=== PATIENT | female | born 1940 | race Caucasian/White ===

== ENCOUNTER 2019-11-25 03:17 | Emergency (ER) | payer OTHER ==
--- OUTSIDE RECORDS SUMMARY | 2019-11-25 03:19 | XMS REPORT ---
:1940 [facility] Address [address] [place] [address] Care Team Providers Name Role Phone DR ZELDA LEONARD Unavailable Unavailable Problems This patient has no known problems. Allergies, Adverse Reactions, Alerts This patient has no known allergies or adverse reactions. Medications This patient has no known medications. Encounters Start End Encounter Admission Attending Care Care Encounter Date/Time Date/Time Type Type Clinicians Facility Department ID 2019-07-02 2019-07-16 Inpatient E [facility] [id number] 18:56:00 15:00:00 ZELDA Results Test Description Test Time Test Comments Text Results Atomic Results Result Comments B12 VITAMIN 2019-07-02 23:33:00 Test Item Value Reference Range Comments VIT B12 (test code=A60) 267.0 pg/mL 180.0-914.0 [id number] 23:15:00 Test Item Value Reference Range Comments Hb A1C % (test code=HBA) 5.7 % 4.2-6.3 LIPID [id number] 19:30:00 Test Item Value Reference Range Comments CHOLESTROL (test code=44A) 213 mg/dL 140-200 TRIGLYCERI (test code=42B) 99 mg/dL <=149 HDL (test code=83D) 82.0 mg/dL 40.0-60.0 LDL (test code=34B) 121 mg/dL <=99 CHL/HDL (test code=CHR) 2.6 0.0-3.4 [id number] 19:30:00 Test Item Value Reference Range Comments FOLATE (test code=A75) 7.4 ng/mL 3.1-17.5 THYROID PANEL/SCREEN (TSH)2019-07-02 19:29:00 Test Item Value Reference Range Comments TSH (test code=A57) 1.870 uIU/mL 0.358-3.740 [id number] 19:26:00 Test Item Value Reference Range Comments PREALBUMIN (test code=08E) 22 mg/dL 18-38 [id number] 19:14:00 Test Item Value Reference Range Comments MAGNESIUM (test code=48A) 2.2 mg/dL 1.8-2.4 URINALYSIS WITH [id number] 18:27:00 Test Item Value Reference Range Comments COLOR (test code=COLU) YELLOW YELLOW CLARITY (test code=CLA) HAZY CLEAR GLUCOSE UR (test code=UA GLUCOSE) NEGATIVE NEGATIVE BILI UR (test code=BILE) NEGATIVE NEGATIVE KETONES UR (test code=BRENDAN) NEGATIVE NEGATIVE SP GRAVITY (test code=SPGR) 1.011 1.005-1.030 PH UR (test code=PH) 6.5 4.5-8.0 PROTEIN UR (test code=PU) NEGATIVE NEGATIVE UROBIL UR (test code=UROQ) 0.2 EU/dL 0.2-1.0 NITRITE UR (test code=NITRITE) POSITIVE NEGATIVE BLOOD UR (test code=UA BLOOD) NEGATIVE NEGATIVE LEUK ES UR (test code=LEUK) 2+ NEGATIVE WBC UR (test code=UWBC) 8 /HPF 0-5 RBC UR (test code=URBC) 0 /HPF 0-2 EPITH UR (test code=UEPC) FEW /LPF FEW BACTERIA UR (test code=UBACT) MODERATE /HPF NONE CAST UR (test code=CAST) /LPF NONE CRYSTAL UR (test code=CRYU) / LPF NONE MUCUS UR (test code=MUC) / HPF NONE AMORPH UR (test code=MIGUELINA) / HPF NONE TRICH UR (test code=UTRICH) /HPF NONE YEAST UR (test code=UY) /HPF NONE SPERM UR (test code=USPERM) /HPF NONE DRUGS OF [id number] 18:25:00 Test Item Value Reference Range Comments DRUG SCRN (test code=HDOA) URINE DRUG SCREEN This is an unconfirmed screening result and should not be used for non-medical purposes CANNABINOD (test code=88C) Negative NEGATIVE AMPHETAMINE (test code=84A) Negative NEGATIVE BENZODIAZP (test code=86A) Negative NEGATIVE BARBITURAT (test code=85A) Negative NEGATIVE OPIATES (test code=92B) Negative NEGATIVE COCAINE (test code=87A) Negative NEGATIVE PHENCYCLID (test code=66A) Negative NEGATIVE METHADONE (test code=64A) Negative NEGATIVE DOAH (test code=DOAH.) URINE DRUG SCREEN Cut-off values are as follows: Cannabinoids 50 ng/mL Cocaine 300 ng/mL Amphetamines 1000 ng/mL Phencyclidine 25 ng/mL Benzodiazepines 200 ng.mL Methadone 300 ng/mL Barbiturates 200 ng/mL Opiates 2000 ng/mL [id number] 17:35:00 Test Item Value Reference Range Comments ACETAMINPH (test code=94M) <2.0 ug/mL 10.0-30.0 [id number] 17:34:00 Test Item Value Reference Range Comments SALICYLATE (test code=94B) <1.7 mg/dL 2.8-20.0 COMPREHENSIVE METABOLIC [id number] 17:21:00 Test Item Value Reference Range Comments GLUCOSE (test code=06D) 96 mg/dL 75-100 SODIUM (test code=01A) 142 mmol/L 136-145 POTASSIUM (test code=01B) 4.0 mmol/L 3.6-5.1 CHLORIDE (test code=04A) 111 mmol/L 98-107 CO2 (test code=02A) 26 mmol/L 22-32 ANION GAP (test code=ANG) 9.0 mmol/L BUN (test code=05D) 15 mg/dL 7-18 CREATININE (test code=03E) 1.5 mg/dL 0.4-1.1 BUN/CREA (test code=BCR) 10 12-20 CALCIUM (test code=09D) 9.3 mg/dL 8.3-9.5 BILI TOTAL (test code=11A) 1.0 mg/dL 0.2-1.0 PROTEIN (test code=07D) 7.3 g/dL 6.4-8.2 ALBUMIN (test code=08D) 4.1 g/dL 3.5-4.8 GLOBULIN (test code=GLB) 3.2 g/dL 1.5-3.8 ALB/GLOB (test code=AGRR) 1.3 1.0-2.6 ALK PHOS (test code=35A) 75 IU/L 42-121 AST (test code=30A) 15 IU/L <=42 ALT (test code=31A) 16 IU/L <=78 ALCOHOL BLOOD (ETOH)2019-07-02 17:20:00 Test Item Value Reference Range Comments ETOH (test code=HALC) ETHANOL The result is to be used only for medical purposes ALCOHOL (test code=56A) <10 mg/dL <=10 PRO TIME AND [id number] 17:13:00 Test Item Value Reference Range Comments PT (test code=TT) 11.0 s 9.8-13.6 INR (test code=INR) 1.0 INRH (test code=INRH) SUGGESTED THERAPEUTIC RANGE FOR INR: 2.5 - 3.5 For Patients with Prosthetic Valves or Patients with recurrent Thromboembolic Events 2.0 - 3.0 For Most Other Applications PTT (test code=PTT) 36.3 s 20.2-38.0 PTTH (test code=PTTH) To monitor the effectiveness of heparin, we offer the Anti-Xa (Heparin Assay). It can be used for either unfractionated or LMW Heparin. Order Code is ANTI-XA XR CHEST 1 VIEW [id number] 17:10:07EXAM: XR CHEST 1 VIEW PORTABLE.LOCATION: D4.HISTORY: [id number]: Psychiatric treatment changed.COMPARISON: None.TECHNIQUE: Single AP view of the chest was obtained. FINDINGS:Patient is rotated to the left. The heart is normal in size. Calcifications areseen at the aortic arch. The lungs are clear. No acute osseous abnormality isidentified.IMPRESSION:No acute cardiopulmonary abnormality.CARDIAC [id number] 17:09:00 Test Item Value Reference Range Comments TROPONIN I (test code=A84) <0.015 ng/mL 0.000-0.045 AMMONIA [id number] 17:05:00 Test Item Value Reference Range Comments AMMONIA (test code=54A) <10 umol/L 11 CBC (INCLUDES AUTOMATED DIFFERENTIAL)2019-07-02 17:02:00 Test Item Value Reference Range Comments WBC (test code=WBC) 6.7 10\S\3/uL 4.5-11.0 RBC (test code=RBC) 4.13 10\S\6/uL 3.80-5.80 HGB (test code=HBG) 12.4 g/dL 12.0-15.5 HCT (test code=HCT) 38.5 % 35.0-44.0 MCV (test code=MCV) 93.2 fL 81.0-99.0 MCH (test code=MCH) 30.0 pg 27.0-31.0 MCHC (test code=MCHC) 32.2 g/dL 32.0-36.0 RDW (test code=RDW) 13.1 % 11.5-14.5 PLT (test code=PLT) 183 10\S\3/uL 130-400 MPV (test code=MPV) 11.9 fL 9.4-12.4 NEUTROP # (test code=NE#) 4.7 10\S\3/uL 1.6-8.0 LYMPH # (test code=LY#) 1.4 10\S\3/uL 1.1-3.5 MONOCYTE # (test code=MO#) 0.5 10\S\3/uL 0.0-1.1 EOSINOPH # (test code=EO#) 0.1 10\S\3/uL 0.0-0.7 BASOPHIL # (test code=BA#) 0.0 10\S\3/uL 0.0-0.3 IG # (test code=IG#) 0.01 10\S\3/uL 0.00-0.06 NRBC # (test code=NRBC#) 0.00 10\S\3/uL 0.00-0.01 NEUTROPH % (test code=NE%) 69.5 % 35.0-73.0 LYMPH % (test code=LY%) 21.0 % 20.0-55.0 MONO % (test code=MO%) 7.9 % 2.5-10.0 EOSINOPH % (test code=EO%) 1.2 % 0.0-5.0 BASOPHIL % (test code=BA%) 0.3 % 0.0-2.0 IG % (test code=IG%) 0.1 % 0.0-0.8 NRBC% (test code=NRBC%) 0.0 % 0.0-0.2 MANDIFF (test code=MDIFF) NO NO RBC MORPH (test code=RBCMOR) NORMAL
--- NOTE | 2019-11-25 04:35 | ER ---
Nurse's Notes [facility] Name: Corinne Ordaz Age: 79 yrs Sex: Female : 1940 Arrival Date: 11/25/2019 Time: 03:18 Bed 8 Private MD: Diagnosis: Contusion of unspecified part of head;Concussion without loss of consciousness Presentation: 11/24 03:15 Chief complaint: EMS states: patient woke up from sleeping found herself on the floor rr5 (side of her bed). having a bump on the back of the head . no blood thinner, no LOC. 03:15 Coronavirus screen: The patient has NOT traveled to a country currently being monitored rr5 by the [facility] within the last 14 days. Proceed with normal triage procedures. Ebola Screen: Patient negative for fever greater than or equal to 101.5 degrees Fahrenheit, and additional compatible Ebola Virus Disease symptoms Patient denies exposure to infectious person. Patient denies travel to an Ebola-affected area in the 21 days before illness onset. Initial Sepsis Screen: Does the patient meet any 2 criteria? No. Patient's initial sepsis screen is negative. Does the patient have a suspected source of infection? No. Patient's initial sepsis screen is negative. Risk Assessment: Do you want to hurt yourself or someone else? Patient reports no desire to harm self or others. Note CBG 93 mg/dl, VS BP 114/58 mmHg Hr 70 bpm, O2 sat 98%. Onset of symptoms was November 25, 2019. 03:15 Method Of Arrival: EMS: [facility] rr5 03:15 Acuity: MELE 3 rr5 03:15 Transition of care: patient was received from another setting of care (long-term care rr5 facility), [facility]aut[facility]. 03:15 Care prior to arrival: None. Mechanism of Injury: Fall out of bed. Trauma event rr5 details: Injury occurred in the [facility], Injury occurred: madiha bautista Injury occurred: November 25, 2019. Trauma Activation: Not Applicable Physician: ED Physician; Name: ; Notified At: ; Arrived At: Physician: General Surgeon; Name: ; Notified At: ; Arrived At: Physician: Radiology; Name: ; Notified At: ; Arrived At: Physician: Respiratory; Name: ; Notified At: ; Arrived At: Physician: Lab; Name: ; Notified At: ; Arrived At: Historical: - Allergies: 03:28 Penicillins; rr5 - Home Meds: 03:28 amlodipine 10 mg oral tab 1 tab once daily [Active]; aripiprazole oral oral [Active]; rr5 Bupropion Oral [Active]; carvedilol oral oral [Active]; donepezil oral oral [Active]; escitalopram oxalate oral oral [Active]; Microzide oral oral [Active]; methscopolamine oral oral [Active]; Mirtazapine Oral [Active]; Omeprazole Oral [Active]; Thera-M oral oral [Active]; hyoscyamine sulfate 0.125 mg SL subl [Active]; - PMHx: 03:28 colon cancer; Hypertension; Depression; rr5 - Immunization history:: Adult Immunizations up to date. - Social history:: Smoking status: unknown. Screenin:28 Abuse screen: Denies threats or abuse. Denies injuries from another. Nutritional rr5 screening: No deficits noted. Tuberculosis screening: No symptoms or risk factors identified. Fall Risk Fall in past 12 months (25 points). Gait- Weak (10 pts.). Total Rincon Fall Scale indicates Low Risk Score (25-44 pts). Fall prevention measures have been instituted. Side Rails Up X 2 Placed close to Nursing Station Frequent Obs/Assesments occuring Family Present and informed to notify staff if they need to leave bedside As available Patient and Family Educated on Fall Prevention Program and strategies. Primary Survey: 03:15 NO uncontrolled hemorrhage observed. A: The patient is alert. Airway: patent, No rr5 supplemental oxygen in use on arrival. Oral cavity: clear, gag reflex present, Trachea midline. 03:15 Breathing/Chest: Respiratory pattern: regular, Respiratory effort: spontaneous, rr5 unlabored, Breath sounds: clear, bilaterally. Chest inspection: symmetrical rise and fall of the chest. Circulation: Heart tones present. Pulses: palpable right radial artery and left radial artery. Skin color: pink, Skin temperature: warm, dry. Disability Alert. Exposure/Environment: All clothing and personal items were removed. Forensic evidence collection is not deemed to be indicated at this time. Items placed in patient belonging bag. There is no evidence of uncontrolled external bleeding. No obvious injuries are noted at this time. A warming method has been applied: A warm blanket has been provided to the patient. 04:15 Reassessment Airway Airway Patent Breathing/Chest Respiratory pattern Regular rr5 Respiratory effort Spontaneous Unlabored Breath sounds Clear Chest inspection Symmetrical Circulation Heart tones Present Pulses Palpable Color [place] Temperature Warm Dry Disability Alert. Secondary Survey: 03:15 HEENT: Head Other swelling on the occipital area, no laceration noted. Face No rr5 injury/deformity Eyes: No injury or deformity noted. Ears: clear bilaterally. Nose: clear to bilateral nares. Throat: is clear with gag reflex present. 03:15 Gastrointestinal: No deficits noted. : No signs and/or symptoms were reported rr5 regarding the genitourinary system. Musculoskeletal: Capillary refill < 3 seconds. Assessment: 03:15 General: Appears in no apparent distress. comfortable, Behavior is calm, cooperative, rr5 appropriate for age. 03:15 Pain: Denies pain. Neuro: Level of Consciousness is awake, alert, obeys commands, rr5 Oriented to person, place, time, situation, Appropriate for age Moves all extremities. Full function Speech is normal, Facial symmetry appears normal, Pupils are PERRLA, Denies dizziness, headache LOC. Cardiovascular: Capillary refill < 3 seconds Patient's skin is warm and dry. Respiratory: Airway is patent Respiratory effort is even, unlabored, Respiratory pattern is regular, symmetrical. GI: Patient currently denies nausea, vomiting. : No signs and/or symptoms were reported regarding the genitourinary system. EENT: No signs and/or symptoms were reported regarding the EENT system. Derm: Skin is intact, is healthy with good turgor, Skin temperature is warm. Musculoskeletal: Swelling present in left side of the back of head. 04:40 Reassessment: Patient appears in no apparent distress at this time. Patient is alert, rr5 oriented x 3, equal unlabored respirations, skin warm/dry/pink. patient is discharge [facility] staff amara informed she said she will call patients family member to arrange transportation. she will call me back for the update. 05:30 Reassessment: Patient appears in no apparent distress at this time. Patient and/or rr5 family updated on plan of care and expected duration. Pain level reassessed. Patient is alert, oriented x 3, equal unlabored respirations, skin warm/dry/pink. went to restroom via wheelchair. awaiting for restroom. 06:10 Reassessment: Patient appears in no apparent distress at this time. madiha lily on the rr5 way for the transport. 06:19 Reassessment: Patient appears in no apparent distress at this time. discharge rr5 instruction given without complaints made. assisted by madiha bautista staff via wheelchair. Vital Signs: 03:15 BP 148 / 62; Pulse 71; Resp 17; Temp 98; Pulse Ox 100% ; Weight 68.04 kg; Height 5 ft. rr5 9 in. (175.26 cm); Pain 0/10; 04:20 BP 141 / 75; Pulse 75; Resp 16; Pulse Ox 99% on R/A; rr5 05:30 BP 145 / 70; Pulse 70; Resp 19; Temp 98.2; Pulse Ox 97% ; rr5 06:12 BP 136 / 59; Pulse 72; Resp 15; Temp 98.1; Pulse Ox 99% on R/A; rr5 03:15 Body Mass Index 22.15 (68.04 kg, 175.26 cm) rr5 [place] Coma Score: 03:15 Eye Response: spontaneous(4). Verbal Response: oriented(5). Motor Response: obeys rr5 commands(6). Total: 15. Trauma Score (Adult): 03:15 Eye Response: spontaneous(1); Verbal Response: oriented(1); Motor Response: obeys rr5 commands(2); Systolic BP: > 89 mm Hg(4); Respiratory Rate: 10 to 29 per min(4); Isidra Score: 15; Trauma Score: 12 06:12 Eye Response: spontaneous(1); Verbal Response: oriented(1); Motor Response: obeys rr5 commands(2); Systolic BP: > 89 mm Hg(4); Respiratory Rate: 10 to 29 per min(4); Isidra Score: 15; Trauma Score: 12 ED Course: 03:15 Patient maintains SpO2 saturation greater than 95% on room air. rr5 03:18 Patient arrived in ED. rr5 03:22 Jose Chow MD is Attending Physician. tw4 03:23 Triage completed. rr5 03:23 Arm band placed on. rr5 03:29 Patient has correct armband on for positive identification. Placed in gown. Call light rr5 in reach. 03:43 Stoner, Adrien, RN is Primary Nurse. rr5 03:55 CT Head C Spine In Process Unspecified. EDMS 04:46 No provider procedures requiring assistance completed. Patient did not have IV access rr5 during this emergency room visit. Administered Medications: No medications were administered Intake: 06:12 voided rr5 Output: 06:12 Other: 2; Total: 0ml. rr5 06:12 voided rr5 Outcome: 04:34 Discharge ordered by . tw4 06:20 Discharged to [facility] rr5 06:20 Condition: stable 06:20 Discharge instructions given to patient, captain room service, Instructed on discharge instructions, follow up and referral plans. Demonstrated understanding of instructions, follow-up care. 06:23 Patient left the ED. mw2 Signatures: Dispatcher [employer] Jose Reynoso MD MD tw4 SamEverardo castro mw2 Adrien Stoner, RN RN rr5
--- NOTE | 2019-11-25 04:35 | EDPHYS ---
Physician Documentation [facility] Name: Corinne Ordaz Age: 79 yrs Sex: Female : 1940 Arrival Date: 11/25/2019 Time: 03:18 Bed 8 Private MD: ED Physician Jose Chow HPI: 11/24 05:36 This 79 yrs old Female presents to ER via EMS with complaints of Fall Injury. tw4 05:36 Details of fall: The patient fell from an upright position, while standing. Onset: The tw4 symptoms/episode began/occurred today. Associated injuries: The patient sustained injury to the head, contusion. Severity of symptoms: At their worst the symptoms were mild, in the emergency department the symptoms are unchanged. The patient has not experienced similar symptoms in the past. Historical: - Allergies: 03:28 Penicillins; rr5 - Home Meds: 03:28 amlodipine 10 mg oral tab 1 tab once daily [Active]; aripiprazole oral oral [Active]; rr5 Bupropion Oral [Active]; carvedilol oral oral [Active]; donepezil oral oral [Active]; escitalopram oxalate oral oral [Active]; Microzide oral oral [Active]; methscopolamine oral oral [Active]; Mirtazapine Oral [Active]; Omeprazole Oral [Active]; Thera-M oral oral [Active]; hyoscyamine sulfate 0.125 mg SL subl [Active]; - PMHx: 03:28 colon cancer; Hypertension; Depression; rr5 - Immunization history:: Adult Immunizations up to date. - Social history:: Smoking status: unknown. ROS: 05:36 Constitutional: Negative for fever, chills, and weight loss, Eyes: Negative for injury, tw4 pain, redness, and discharge, Cardiovascular: Negative for chest pain, palpitations, and edema, Respiratory: Negative for shortness of breath, cough, wheezing, and pleuritic chest pain, Abdomen/GI: Negative for abdominal pain, nausea, vomiting, diarrhea, and constipation, Back: Negative for injury and pain, MS/Extremity: Negative for injury and deformity, Skin: Negative for injury, rash, and discoloration. Exam: 05:36 Constitutional: This is a well developed, well nourished patient who is awake, alert, tw4 and in no acute distress. 05:36 Eyes: Pupils equal round and reactive to light, extra-ocular motions intact. Lids and lashes normal. Conjunctiva and sclera are non-icteric and not injected. Cornea within normal limits. Periorbital areas with no swelling, redness, or edema. ENT: Nares patent. No nasal discharge, no septal abnormalities noted. Tympanic membranes are normal and external auditory canals are clear. Oropharynx with no redness, swelling, or masses, exudates, or evidence of obstruction, uvula midline. Mucous membranes moist. Neck: Trachea midline, no thyromegaly or masses palpated, and no cervical lymphadenopathy. Supple, full range of motion without nuchal rigidity, or vertebral point tenderness. No Meningismus. Chest/axilla: Normal chest wall appearance and motion. Nontender with no deformity. No lesions are appreciated. Cardiovascular: Regular rate and rhythm with a normal S1 and S2. No gallops, murmurs, or rubs. Normal PMI, no JVD. No pulse deficits. Respiratory: Lungs have equal breath sounds bilaterally, clear to auscultation and percussion. No rales, rhonchi or wheezes noted. No increased work of breathing, no retractions or nasal flaring. Abdomen/GI: Soft, non-tender, with normal bowel sounds. No distension or tympany. No guarding or rebound. No evidence of tenderness throughout. MS/ Extremity: Pulses equal, no cyanosis. Neurovascular intact. Full, normal range of motion. Neuro: Awake and alert, GCS 15, oriented to person, place, time, and situation. Cranial nerves II-XII grossly intact. Motor strength 5/5 in all extremities. Sensory grossly intact. Cerebellar exam normal. Normal gait. 05:36 Constitutional: The patient appears in no acute distress, alert, awake, comfortable. 05:36 Head/face: Noted is contusion, that is superficial, of the right occipital area. Vital Signs: 03:15 BP 148 / 62; Pulse 71; Resp 17; Temp 98; Pulse Ox 100% ; Weight 68.04 kg; Height 5 ft. rr5 9 in. (175.26 cm); Pain 0/10; 04:20 BP 141 / 75; Pulse 75; Resp 16; Pulse Ox 99% on R/A; rr5 05:30 BP 145 / 70; Pulse 70; Resp 19; Temp 98.2; Pulse Ox 97% ; rr5 06:12 BP 136 / 59; Pulse 72; Resp 15; Temp 98.1; Pulse Ox 99% on R/A; rr5 03:15 Body Mass Index 22.15 (68.04 kg, 175.26 cm) rr5 Isidra Coma Score: 03:15 Eye Response: spontaneous(4). Verbal Response: oriented(5). Motor Response: obeys rr5 commands(6). Total: 15. Trauma Score (Adult): 03:15 Eye Response: spontaneous(1); Verbal Response: oriented(1); Motor Response: obeys rr5 commands(2); Systolic BP: > 89 mm Hg(4); Respiratory Rate: 10 to 29 per min(4); [place] Score: 15; Trauma Score: 12 06:12 Eye Response: spontaneous(1); Verbal Response: oriented(1); Motor Response: obeys rr5 commands(2); Systolic BP: > 89 mm Hg(4); Respiratory Rate: 10 to 29 per min(4); Isidra Score: 15; Trauma Score: 12 MDM: 03:22 Patient medically screened. tw4 05:36 Differential diagnosis: closed head injury, contusion, fracture, laceration. Data tw4 reviewed: vital signs, nurses notes. Data reviewed: radiologic studies, CT scan. Data interpreted: Pulse oximetry:. Counseling: I had a detailed discussion with the patient and/or guardian regarding: the historical points, exam findings, and any diagnostic results supporting the discharge/admit diagnosis, radiology results. Special discussion: Based on the patient's history, exam and DX evaluation, there is no indication for emergent intervention or inpatient [place]. It is understood by the patient/guardian that if the SXs persist or worsen they need to return immediately for re-evaluation. I discussed with the patient/guardian in detail that at this point there is no indication for admission to the hospital. It is understood, however, that if the symptoms persist or worsen the patient needs to return immediately for re-evaluation. 11/24 03:25 Order name: CT Head C Spine tw4 Administered Medications: No medications were administered Disposition: 11/25/19 04:34 Discharged to Home. Impression: Contusion of unspecified part of head, Concussion without loss of consciousness. - Condition is Stable. - Discharge Instructions: Contusion, Head Injury, Adult, [id number]. - Medication Reconciliation Form, Thank You Letter, Antibiotic Education, Prescription Opioid Use form. - Follow up: Private Physician; When: Upon discharge from the Emergency Department; Reason: Recheck today's complaints, Continuance of care, Re-evaluation by your physician. - Problem is new. - Symptoms have improved. Signatures: Dispatcher [employer] Jose Reynoso MD MD tw4 Everardo Vargas mw2 Adrien Stoner RN RN rr5 Corrections: (The following items were deleted from the chart) 06:23 04:34 11/25/2019 04:34 Discharged to Home. Impression: Contusion of unspecified part of mw2 head; Concussion without loss of consciousness. Condition is Stable. Forms are Medication Reconciliation Form, Thank You Letter, Antibiotic Education, Prescription Opioid Use. Follow up: Private Physician; When: Upon discharge from the Emergency Department; Reason: Recheck today's complaints, Continuance of care, Re-evaluation by your physician. Problem is new. Symptoms have improved. tw4
[2019-11-25 06:36] VITALS: BP 136/59; TEMP 98.1; O2SAT 99
--- NOTE | 2019-11-25 11:05 | RAD REPORT ---
EXAM DESCRIPTION: CT - CTHCSPWOC - 11/25/2019 6:22 am CLINICAL HISTORY: PAIN COMPARISON: 10/07/2015 TECHNIQUE: Axial CT of the head obtained from the skull apex to the skull base without contrast. Axi al CT images of the cervical spine obtained from the skull base through the thoracic inlet. Sagittal and coronal reformatted images available. FINDINGS: CT head: No acute intracranial hemorrhage identified. No mass, mass effect, shift of the midline, abnormal ext ra-axial fluid collection or CT evidence of acute ischemic change identified. Mild enlargement of leidy tricular system and sulcal spaces compatible with cerebral atrophy. Confluent areas of hypodensity throughout the supratentorial white matter are nonspecific and may represent sequela of chronic small vessel ischemic change. The visualized paranasal sinuses and the mastoids are clear. Intracranial atherosclerosis. Prior left-sided craniotomy. Visualized orbits and globes are unremarkable. Cervical CT: Straightening of the cervical lordosis may be secondary to patient positioning. The atlantoaxial, a tlantodental, and occipitoatlantal intervals are preserved. No fracture identified. Vertebral body height preserved. Prevertebral soft tissues are unremarkable. Mild multilevel loss of intervertebral disc height with endplate spondylosis, facet arthropathy, and uncovertebral spurring. Spurring of the atlantodental articulation. Visualized skull base is intact. No fracture of the visualized facial bones. Visualized mastoid air c ells and paranasal sinuses are well aerated. Visualized thyroid is unremarkable. No cervical lymphadenopathy. No pneumothorax in the visualized lung apices. IMPRESSION: 1. No acute intracranial abnormality. 2. No acute fracture or subluxation of the cervical spine. 3. Multilevel degenerative change of the cervical spine. This exam was performed according to our departmental dose-optimization program, which includes autom ated exposure control, adjustment of the mA and/or kV according to patient size and/or use of iterati ve reconstruction technique. Electronically signed by: Reagan Giraldo 11/25/2019 4:11 AM CDT Due to temporary technical issues with the PACS/Fluency reporting system, reports are being signed by the in house radiologist as a courtesy to ensure prompt reporting. The interpreting radiologist is f ully responsible for the content of the report.
== END 2019-11-25 06:23 | disposition home or self-care (01) ==
LOC: ER 03:17
DX: S06.0X0A Concussion without loss of consciousness, initial encounter (principal); S00.93XA Contusion of unspecified part of head, initial encounter; W06.XXXA Fall from bed, initial encounter; Y93.9 Activity, unspecified; Y92.013 Bedroom of single-family (private) house as the place of occurrence of the external cause; Z88.0 Allergy status to penicillin; Z85.038 Personal history of other malignant neoplasm of large intestine; I10 Essential (primary) hypertension
CPT/HCPCS: 70450; 72125; 99284

== ENCOUNTER 2021-07-09 07:57 | Inpatient (IN) | payer OTHER ==
[2021-07-09 08:39] LABS: Absolute Lymphocytes (CBC) 0.9 K/uL (0.7-4.9); Basophils % 0.5 % (0-1.3); Hematocrit 38.4 % (36.0-45.0); Lymphocytes % 11.5 % (15.3-44.8); MPV 9.5 fL (7.6-11.3); RBC Red Blood Cell Count 4.25 M/uL (3.86-4.86)
[2021-07-09 08:55] LABS: Protime INR 0.97
[2021-07-09 08:59] LABS: ALT/SGPT 27 U/L (12-78); AST/SGOT 20 U/L (15-37); Albumin 3.8 g/dL (3.4-5.0); Alkaline Phosphatase 87 U/L (45-117); BUN Blood Urea Nitrogen 28 mg/dL (7-18); Bicarbonate 26 mmol/L (21-32); Bilirubin Direct 0.2 mg/dL (0-0.2); Bilirubin Total 0.6 mg/dL (0.2-1.0); CKMB Creatine Kinase MB 2.6 ng/mL (1.0-3.6); Creatine Phosphokinase 116 U/L (26-192); Glucose Level 111 mg/dL (74-106); Lipase 242 U/L (73-393); Potassium 3.5 mmol/L (3.5-5.1); Protein, Total 7.2 g/dL (6.4-8.2); Sodium Level 142 mmol/L (136-145); Troponin (Emerg Dept Use Only) < 0.02 ng/mL (0.0-0.045)
[2021-07-09] MEDS ORDERED: NA CHLORIDE 0.9% 1,000 ML ONE (09:06)
--- NOTE | 2021-07-09 09:07 | RAD REPORT ---
EXAM DESCRIPTION: CT - Head C Spine Cap Wo Con - 07/09/2021 8:40 am CLINICAL HISTORY: PAIN, fall, head, neck, chest and abdomen pain COMPARISON: Head C Spine Mpr Wo Con dated 11/25/2019 TECHNIQUE: Axial [address] head images were obtained. Axial [address] cervical spine images were obtain ed with sagittal and coronal reconstruction images reviewed. Axial 5 mm images of the chest, abdomen and pelvis were obtained. All CT scans are performed using dose optimization technique as appropriate and may include automated exposure control or mA/KV adjustment according to patient size. FINDINGS: No intracranial hemorrhage, mass or edema. No midline shift or abnormal fluid collection. Mastoid air cells and paranasal sinuses are clear. No acute skull fracture. Left frontoparietal crani otomy defect noted. No acute globe or orbital content abnormality. Dense arterial tree calcifications are present. Mild to moderate severity for age atrophy changes are present. Patient has advanced ch ronic ischemic change in the cerebral white matter. Cervical bodies are normal in height. No significant alignment abnormality seen. Multilevel advanced facet joint degenerative changes are present. No fracture or acute bone finding.Disc space narrowing present throughout the cervical spine.No prevertebral soft tissue thickening or paraspinal mass.Centr al canal detail is inherently limited on CT imaging. CT chest shows no pneumothorax, pulmonary contusion or pleural fluid collection. No mediastinal hem atoma and the aorta and pulmonary arteries are unremarkable. No chest will mass or abnormal axillary finding. No displaced rib fracture or other significant bony finding. CT abdomen and pelvis show no injury to solid abdominal viscera. Gallbladder is absent or tightly con tracted. There do appear to be cholecystectomy clips. No abnormal biliary tree dilatation. No bowel i njury or significant finding. No free air, free fluid or abnormal stranding. No hernia, mass or bulky lymphadenopathy. No urinary bladder abnormality. Degenerative changes are present throughout the spine mild for age. Patient has advanced degenerative disc disease at L2-3 and L5-S1. No proximal femur or pelvis acute fracture. IMPRESSION: No hemorrhage, edema or acute intracranial findings. Patient has atrophy chronic ischemi c change mild to moderate in severity. Cervical spine degenerative changes are present. No acute cervical finding. Soft tissue asymmetry in the pyriform sinuses noted. This is not fully assessed but is doubtful as significant. No significant CT Chest finding. No significant CT Abdomen and Pelvis finding.
[2021-07-09 09:43] LABS: Urine Blood Trace-intact (Negative); Urine Glucose Negative (Negative); Urine Protein Negative (Negative)
[2021-07-09 10:07] LABS: Urine Bacteria LOADED /HPF (<20); Urine Mucus SLIGHT /HPF (NONE SEEN); Urine RBC <5 /HPF (NONE SEEN)
[2021-07-09] MEDS ORDERED: WATER FOR INJ,STERILE 10 ML ONE (10:22)
[2021-07-09] MEDS ORDERED: CEFTRIAXONE 1000 MG/VIAL ONE (10:22)
--- NOTE | 2021-07-09 10:26 | ER ---
Nurse's Notes [facility] Name: Corinne Ordaz Age: 81 yrs Sex: Female : 1940 Arrival Date: 07/09/2021 Time: 08:09 Bed 16 Private MD: Diagnosis: Fall on same level, unspecified;Acute cystitis;Syncope Near Presentation: 07/09 08:10 Chief complaint: EMS states: Pt. arrives from [facility] living due to an jt3 unwitnessed fall. Pt. was found laying in the living room by staff. Pt. is a poor historian due to having dementia. Pt. is alert and oriented to person and place on arrival, but disoriented to time and situation. Pt. endorses back pain. Pt. states she hit her head, but told EMS she did not. No bleeding noted. No deformities noted. VSS on arrival. Care prior to arrival: None. Mechanism of Injury: Fall out of chair. Trauma event details: Injury occurred: [facility]. 08:10 Acuity: MELE 3 jt3 08:10 Method Of Arrival: EMS: [facility] jt3 Triage Assessment: 08:16 General: Appears in no apparent distress. jt3 - Immunization history: Last tetanus immunization: unknown. - Social history:: Patient/guardian denies using alcohol, street drugs, The patient lives with family. - Family history:: not pertinent. Screenin:10 Abuse screen: Denies threats or abuse. Denies injuries from another. Nutritional jt3 screening: No deficits noted. Tuberculosis screening: No symptoms or risk factors identified. Primary Survey: 08:10 NO uncontrolled hemorrhage observed. A: Airway: patent. Breathing/Chest: Respiratory jt3 pattern: regular. Circulation: Skin temperature: warm. Disability Alert. Exposure/Environment: A warming method has been applied: A warm blanket has been provided to the patient. Assessment: 08:10 General: Appears in no apparent distress. Behavior is calm, cooperative, quiet. Pain: jt3 Complains of pain in back Pain does not radiate. Pain currently is 3 out of 10 on a pain scale. Quality of pain is described as throbbing. Neuro: Reports weakness Pt. alert and oriented x2. Hx of dementia. Pt. hesitates to answer questions. No uncontrolled bleeding. Cardiovascular: No deficits noted. Respiratory: No deficits noted. 08:30 Reassessment: Patient transported to radiology department for CAT scan via stretcher. sl2 Neuro:. 09:54 Reassessment: Patient appears in no apparent distress at this time. Patient and/or jt3 family updated on plan of care and expected duration. Pain level reassessed. Pt. was straight catheterized for urine due to patient unable to void on her own at this time. Pt. tolerated procedure okay. . Vital Signs: 08:10 BP 127 / 61; Pulse 67; Resp 17; Temp 98.7; Pulse Ox 100% on R/A; Weight 68.04 kg; jt3 09:54 BP 141 / 63; Pulse 68; Resp 16; Pulse Ox 100% on R/A; jt3 11:20 BP 143 / 57; Pulse 72; Resp 16; Pulse Ox 100% ; jt3 [place] Coma Score: 08:10 Eye Response: spontaneous(4). Verbal Response: confused(4). Motor Response: localizes jt3 pain(5). Total: 13. Trauma Score (Adult): 08:10 Eye Response: spontaneous(1); Verbal Response: oriented(1); Motor Response: obeys jt3 commands(2); Systolic BP: > 89 mm Hg(4); Respiratory Rate: 10 to 29 per min(4); [place] Score: 15; Trauma Score: 12 ED Course: 08:09 Patient arrived in ED. as 08:10 Matthew Reno, RN is Primary Nurse. jt3 08:10 Patient has correct armband on for positive identification. Placed in gown. Bed in low jt3 position. Side rails up X2. 08:10 Patient maintains SpO2 saturation greater than 95% on room air. jt3 08:12 Triage completed. jt3 08:17 Luis Antonio Ramirez MD is Attending Physician. ma2 08:[address] via stretcher. sl2 08:33 Basic Metabolic Panel Sent. jt3 08:39 CT Traumagram (Head C Spine CAP wo con) In Process Unspecified. EDMS 09:43 Straight cath inserted, using sterile technique, Specimen obtained. 15Fr Returned dh3 cloudy urine. Patient tolerated well. 10:28 Adrien Solo MD is Hospitalizing Provider. ma2 12:59 No provider procedures requiring assistance completed. Patient admitted, IV remains in ss place. Administered Medications: 09:16 Drug: NS 0.9% 1000 ml Route: IV; Rate: 125 ml/hr; Site: left antecubital; jt3 10:02 Drug: Rocephin (cefTRIAXone) 1 grams Route: IV; Rate: calculated rate; Site: left jt3 antecubital; 12:59 Not Given (Other Intervention Used): Ativan (LORazepam) 1 mg IVP once ss Intake: 08:10 PO: 0ml; IV: 0ml; Total: 0ml. jt3 Output: 08:10 Urine: 0ml; Total: 0ml. jt3 Outcome: 10:26 Discharge ordered by MD. ma2 10:29 Decision to Hospitalize by Provider. ma2 12:58 Admitted to Med/surg accompanied by nurse, via wheelchair. jt3 12:58 Condition: Report given to ROSALIND Menjivar. 12:59 Instructed on the need for admit. ss 13:01 Patient left the ED. Signatures: Dispatcher [employer] EDMS Ayanna Johnson Shelby, ROSALIND RN Rylee Brambila 3 Luis Antonio Ramirez MD MD ma2 Cori Sanchez RN RN 2 Matthew Reno RN RN jt3 Corrections: (The following items were deleted from the chart) 11:21 08:10 Patient has correct armband on for positive identification. Placed in gown. Bed jt3 in low position. Side rails up X 1. jt3
--- NOTE | 2021-07-09 10:26 | EDPHYS ---
Physician Documentation [facility] Name: Corinne Ordaz Age: 81 yrs Sex: Female : 1940 Arrival Date: 07/09/2021 Time: 08:09 Bed 16 Private MD: ED Physician Luis Antonio Ramirez HPI: 07/09 08:25 This 81 yrs old Female presents to ER via EMS with complaints of Fall Injury. ma2 08:25 Details of fall: The patient fell from an upright position. Onset: The symptoms/episode ma2 began/occurred suddenly, 12 hour(s) ago. Severity of symptoms: At their worst the symptoms were moderate, in the emergency department the symptoms are unchanged. The patient has not experienced similar symptoms in the past. - Immunization history: Last tetanus immunization: unknown. - Social history:: Patient/guardian denies using alcohol, street drugs, The patient lives with family. - Family history:: not pertinent. ROS: 08:25 Constitutional: Negative for fever, chills, and weight loss. ma2 08:25 Back: Positive for neck and upper back pain. 08:25 All other systems are negative. Exam: 08:25 Constitutional: This is a well developed, well nourished patient who is awake, alert, ma2 and in no acute distress. Head/Face: Normocephalic, atraumatic. Eyes: Pupils equal round and reactive to light, extra-ocular motions intact. Lids and lashes normal. Conjunctiva and sclera are non-icteric and not injected. Cornea within normal limits. Periorbital areas with no swelling, redness, or edema. ENT: Nares patent. No nasal discharge, no septal abnormalities noted. Tympanic membranes are normal and external auditory canals are clear. Oropharynx with no redness, swelling, or masses, exudates, or evidence of obstruction, uvula midline. Mucous membranes moist. Neck: Trachea midline, no thyromegaly or masses palpated, and no cervical lymphadenopathy. Supple, full range of motion without nuchal rigidity, or vertebral point tenderness. No Meningismus. Chest/axilla: Normal chest wall appearance and motion. Nontender with no deformity. No lesions are appreciated. Cardiovascular: Regular rate and rhythm with a normal S1 and S2. No gallops, murmurs, or rubs. Normal PMI, no JVD. No pulse deficits. Respiratory: Lungs have equal breath sounds bilaterally, clear to auscultation and percussion. No rales, rhonchi or wheezes noted. No increased work of breathing, no retractions or nasal flaring. Abdomen/GI: Soft, non-tender, with normal bowel sounds. No distension or tympany. No guarding or rebound. No evidence of tenderness throughout. Back: No spinal tenderness. No costovertebral tenderness. Full range of motion. Skin: Warm, dry with normal turgor. Normal color with no rashes, no lesions, and no evidence of cellulitis. MS/ Extremity: Pulses equal, no cyanosis. Neurovascular intact. Full, normal range of motion. Neuro: Awake and alert, GCS 15, oriented to person, place, time, and situation. Cranial nerves II-XII grossly intact. Motor strength 5/5 in all extremities. Sensory grossly intact. Cerebellar exam normal. Normal gait. Vital Signs: 08:10 BP 127 / 61; Pulse 67; Resp 17; Temp 98.7; Pulse Ox 100% on R/A; Weight 68.04 kg; jt3 09:54 BP 141 / 63; Pulse 68; Resp 16; Pulse Ox 100% on R/A; jt3 11:20 BP 143 / 57; Pulse 72; Resp 16; Pulse Ox 100% ; jt3 Isidra Coma Score: 08:10 Eye Response: spontaneous(4). Verbal Response: confused(4). Motor Response: localizes jt3 pain(5). Total: 13. Trauma Score (Adult): 08:10 Eye Response: spontaneous(1); Verbal Response: oriented(1); Motor Response: obeys jt3 commands(2); Systolic BP: > 89 mm Hg(4); Respiratory Rate: 10 to 29 per min(4); Isidra Score: 15; Trauma Score: 12 MDM: 08:[address] [facility] 08:25 Differential diagnosis: closed head injury, contusion, fracture, sprain, strain. [facility] 10:25 Data reviewed: vital signs, nurses notes. Counseling: I had a detailed discussion with [facility] the patient and/or guardian regarding: the historical points, exam findings, and any diagnostic results supporting the discharge/admit diagnosis, the presence of at least one elevated blood pressure reading (>120/80) during this emergency department visit, the need for outpatient follow up. Response to treatment: the patient's symptoms have markedly improved after treatment. 07/09 08:19 Order name: Basic Metabolic Panel wi2 07/09 08:19 Order name: CBC with Diff; Complete Time: 09:41 ma2 07/09 08:19 Order name: CPK; Complete Time: 09:41 ma2 07/09 08:19 Order name: Ckmb; Complete Time: : ma2 07/09 08:19 Order name: Hepatic Function; Complete Time: : ma2 07/09 08:19 Order name: Lipase; Complete Time: : ma2 07/09 08:19 Order name: Magnesium; Complete Time: : ma2 07/09 08:19 Order name: Protime (+inr); Complete Time: : ma2 07/09 08:19 Order name: Ptt, Activated; Complete Time: :41 ma2 07/09 08:19 Order name: Troponin (emerg Dept Use Only); Complete Time: : ma2 07/09 08:19 Order name: Basic Metabolic Panel; Complete Time: 09:41 EDMS 07/09 09:42 Order name: Urine Dipstick-Ancillary; Complete Time: 09:50 EDMS 07/09 09:42 Order name: Urine Microscopic Only dh3 07/09 09:43 Order name: Urine Microscopic Only; Complete Time: 10:26 EDMS 07/09 08:19 Order name: EKG; Complete Time: 08:20 ma2 07/09 08:19 Order name: Cardiac monitoring; Complete Time: 08:33 ma2 07/09 08:19 Order name: EKG - Nurse/Tech; Complete Time: 08:33 ma2 07/09 08:19 Order name: IV Saline Lock; Complete Time: 08:33 ma2 07/09 08:19 Order name: Labs collected and sent; Complete Time: : ma2 07/09 08:19 Order name: NPO; Complete Time: : ma2 07/09 08:19 Order name: O2 Per Protocol; Complete Time: 08:33 ma2 07/09 08:19 Order name: O2 Sat Monitoring; Complete Time: : ma2 07/09 08:19 Order name: Urine Dipstick-Ancillary (obtain specimen); Complete Time: 09:44 ma2 07/09 08:19 Order name: CT Traumagram (Head C Spine CAP wo con); Complete Time: 09:41 ma2 07/09 10:09 Order name: Urine Culture EDMS 07/09 10:45 Order name: SARS-COV-2 RT PCR (Document "Date of Onset" if Symptomatic) ss 07/09 10:45 Order name: SARS-COV-2 RT PCR; Complete Time: 12:39 EDMS Administered Medications: 09:16 Drug: NS 0.9% 1000 ml Route: IV; Rate: 125 ml/hr; Site: left antecubital; jt3 10:02 Drug: Rocephin (cefTRIAXone) 1 grams Route: IV; Rate: calculated rate; Site: left jt3 antecubital; 12:59 Not Given (Other Intervention Used): Ativan (LORazepam) 1 mg IVP once ss Disposition Summary: 07/09/21 10:29 Hospitalization Ordered Hospitalization Status: Observation ma2 Provider: Adrien Solo Location: Telemetry/MedSurg (observation)(07/09/21 10:29) ma2 Condition: Stable(07/09/21 10:29) ma2 Problem: new ma2 Symptoms: are unchanged ma2 Bed/Room Type: Standard [facility] Room Assignment: [facility](07/09/21 12:13) eb Diagnosis - Fall on same level, unspecified(07/09/21 10:29) ma2 - Acute cystitis ma2 - Syncope Near ma2 Forms: - Medication Reconciliation Form ma2 - SBAR form ma2 Signatures: Dispatcher [employer] EDCA Chris Hopson PA PA jmm Alzahri, Mohammad, MD MD ma2 Daly Stovall Jordan, RN RN patriciat3 Stephy Welsh RN ss Corrections: (The following items were deleted from the chart) 10: 10: Home ma2 ma2 10: 10: Stable ma2 ma2 10: 10: Dehydration ma2 ma2 10: 10: Fall on same level, unspecified ma2 ma2 12:13 10:29 ma2 eb
--- NOTE | 2021-07-09 11:24 | P.HP ---
Certification for Inpatient Patient admitted to: Inpatient With expected LOS: >2 Midnights Practitioner: I am a practitioner with admitting privileges, knowledge of patient current condition, hospital course, and medical plan of care. Services: Services provided to patient in accordance with Admission requirements found in Title 42 Section 412.3 of the Code of Federal Regulations Patient History Date of Service: 07/09/21 Reason for admission: ROHAN, UTI, fall History of Present Illness: 81-year-old female, PMH: Hypertension, depression, delusional disorder Patient was brought in by EMS from [facility] living after a fall. Patient with confusion and does not fully remember the events and is currently a poor historian. Information obtained from the ER physician who states patient had a fall and wound was sent to the hospital. In the ER she was found to have an ROHAN and urinalysis concerning for a urinary tract infection. She was noted to have some confusion, unclear if this was from her baseline. Patient states she is not typically confused. She denies any pain, no nausea/vomiting/diarrhea, no fever/chills. However she is unable to fully recall the events of the last 2 days. ER physician advised to admit the patient for treatment for UTI, and further evaluation and treatment of her ROHAN. Patient does not appear septic. She was started on maintenance IV fluids and given a dose of Rocephin in the ER. Allergies No Known Allergies Allergy (Uncoded 10/12/17 22:13) Unknown PENICILLINS Allergy (Uncoded 08/18/15 21:12) Unknown - Past Medical/Surgical History -: Hypertension -: Depression -: Delusional disorder Past Surgical History: Unable to obtain - Family History Family History: Reviewed- Non-Contributory (Unable to obtain) - Social History Smoking Status: Former smoker ("Quit many years ago") Alcohol use: No Review of Systems 10-point ROS is otherwise unremarkable Physical Examination - Physical Exam General: Alert, In no apparent distress, Oriented x1, Confused HEENT: Other (Dry mucous membranes), Sclerae nonicteric Neck: No LAD Respiratory: Clear to auscultation bilaterally, Normal air movement Cardiovascular: No edema, Regular rate/rhythm Gastrointestinal: Soft and benign, Non-distended, No tenderness Integumentary: No rashes, No significant lesion Neurological: Normal speech, Other (Flat affect. Moves all extremities) - Studies Laboratory Data (last 24 hrs) 07/09/21 08:28: PT 11.1, INR 0.97, APTT 35.2 07/09/21 08:28: WBC 7.70, Hgb 12.5, Hct 38.4, Plt Count 203 07/09/21 08:28: Sodium 142, Potassium 3.5, BUN 28 H, Creatinine 1.99 H, Glucose 111 H, Magnesium 2.0, Total Bilirubin 0.6, AST 20, ALT 27, Alkaline Phosphatase 87, Lipase 242 Assessment and Plan - Advance Directives Does patient have a Living Will: No Does patient have a Durable POA for Healthcare: No Physician Review Additional Text: Problem list Recent fall, unknown etiology Acute cystitis, without sepsis ROHAN Hypertension Depression Delusional disorder Continue IV fluids, continue Rocephin UA grossly positive for UTI, follow-up culture Suspect UTI as well as the patient's fall and her current confusion. Also unclear if patient's baseline mentation Monitor on telemetry Physical therapy consulted Bedside swallow screen by nursing to be done, then can advance diet as tolerated ROHAN likely secondary to dehydration, patient believes she has not been eating/drinking very much lately Follow-up blood work in a.m. Does not appear septic Obtain home medications and restart as appropriate VTE: lovenox Code: full -patient at times stated DNR, and wanting CPR. She seems confused and inappropriate to answers. Paperwork does not show any advanced directives. Therefore she will be a full code Dispo: Anticipate discharge back to assisted living in 2-3 days Time Spent Managing Pts Care (In Minutes): 60
[2021-07-09] MEDS ORDERED: ONDANSETRON 4 MG/2 ML VIAL IV PRN (13:05)
[2021-07-09] MEDS ORDERED: ACETAMINOPHEN 500 MG TAB PO PRN (13:05)
[2021-07-09] MEDS: NA CHLORIDE 0.9% 1,000 ML IV SCH ×2 (13:05→15:38)
[2021-07-09] MEDS ORDERED: KCL 20 MEQ/100 mL IVPB 20 MEQ/100 ML BAG IV SCH (15:00)
[2021-07-09 16:06] VITALS: BMI 22.1
[2021-07-10] MEDS: NA CHLORIDE 0.9% 1,000 ML IV SCH ×2 (02:25→12:08)
--- NOTE | 2021-07-10 06:05 | P.PN ---
Date of Service: 07/10/21 Subjective: mentation improving, more alert/oriented. talking with friend in room AAO to self only. Friend in room states this is not the patient's baseline, but improved compared to yesterday Patient denies any pain, no dysuria, no chills, no shortness of breath, no chest pain She states she is unsure if she has any new symptoms, but currently feeling okay ROS: 10 point ROS as noted above, otherwise negative Physical exam GEN: Alert, oriented to self only, NAD HEENT: Normal conjunctiva, sclera anicteric CV: Regular rate and rhythm, no edema Pulm: Nonlabored respiration on room air ABD: Soft, nontender, nondistended Neuro: Normal speech, normal affect, moves all extremities Problem list Recent fall, unknown etiology Acute metabolic encephalopathy secondary to UtI Acute cystitis, without sepsis ROHAN Hypertension Depression Delusional disorder Continue IV fluids, continue Rocephin UA grossly positive for UTI, follow-up culture Suspect UTI as well as the patient's fall and her current confusion. Patient's mentation seems to be improving, but still remains quite confused. Possible component of delirium as well Monitor on telemetry Physical therapy consulted Tolerating diet ROHAN improved, secondary to dehydration. Continue IV fluids Obtain home medications and restart as appropriate VTE: Lovenox Code: DNR - confirmed with MPOA Dispo: Anticipate discharge back to assisted living in 1-2 days pending culture and improvement of encephalopathy Time Spent Managing Pts Care (In Minutes): 35
[2021-07-10 06:11] LABS: Absolute Lymphocytes (CBC) 1.3 K/uL (0.7-4.9); Basophils % 0.3 % (0-1.3); Hematocrit 33.6 % (36.0-45.0); Lymphocytes % 19.6 % (15.3-44.8); MPV 9.7 fL (7.6-11.3)
[2021-07-10 06:30] LABS: Albumin 3.2 g/dL (3.4-5.0); Bilirubin Total 0.9 mg/dL (0.2-1.0); Magnesium 1.9 mg/dL (1.8-2.4); Potassium 3.4 mmol/L (3.5-5.1); Protein, Total 6.3 g/dL (6.4-8.2)
[2021-07-10] MEDS: carvediloL 6.25 MG TAB PO SCH ×2 (08:57→20:01)
[2021-07-10] MEDS: hydroCHLOROthiazide 12.5 MG CAP PO SCH (08:58)
[2021-07-10] MEDS: ENOXAPARIN 30 MG/0.3 ML SQ SCH (08:59)
[2021-07-10] MEDS: ESCITALOPRAM 20 MG TAB PO SCH (08:59)
[2021-07-10] MEDS: CEFTRIAXONE 1 GM/NS 50 ML 1 GM/50 ML BAG IV SCH (09:00)
[2021-07-10] MEDS: buPROPion HCL 100 MG TAB PO SCH (09:00)
[2021-07-10] MEDS: MIRTAZAPINE 15 MG TAB PO SCH (20:00)
[2021-07-10] MEDS: ARIPiprazole 5 MG TAB PO SCH (20:01)
[2021-07-10] MEDS: DONEPEZIL HCL 5 MG TAB PO SCH (20:01)
--- NOTE | 2021-07-11 06:09 | P.PN ---
Date of Service: 07/11/21 Subjective: No acute events overnight. Patient continues to improve, still with some confusion/delirium Has refused to work with physical therapy Without complaints, voiding without issue, no shortness of breath, no chest pain, denies dysuria ROS: 10 point ROS as noted above, otherwise negative Physical exam GEN: Alert, oriented to self only, NAD HEENT: Normal conjunctiva, sclera anicteric CV: Regular rate and rhythm, no edema Pulm: Nonlabored respiration on room air ABD: Soft, nontender, nondistended Neuro: Normal speech, normal affect, moves all extremities Problem list Recent fall, unknown etiology Acute metabolic encephalopathy secondary to UtI Acute cystitis, without sepsis ROHAN Hypertension Depression Delusional disorder Continue IV fluids, continue Rocephin Urine growing E. coli, awaiting final cultures Patient's mentation seems to be improving, but still remains confused. Possible component of delirium as well Monitor on telemetry Physical therapy consulted Tolerating diet ROHAN improved, secondary to dehydration. Continue IV fluids Obtain home medications and restart as appropriate VTE: Lovenox Code: DNR - confirmed with MPOA Dispo: Anticipate discharge back to assisted living in 1-2 days pending culture and improvement of encephalopathy Time Spent Managing Pts Care (In Minutes): 35 [facility] Stefany Martinez [phone]
[2021-07-11 06:41] LABS: Absolute Lymphocytes (CBC) 1.5 K/uL (0.7-4.9); Basophils % 0.4 % (0-1.3); Hematocrit 32.3 % (36.0-45.0); MPV 9.6 fL (7.6-11.3); RBC Red Blood Cell Count 3.59 M/uL (3.86-4.86)
[2021-07-11 06:50] LABS: Magnesium 1.8 mg/dL (1.8-2.4); Potassium 3.4 mmol/L (3.5-5.1)
[2021-07-11] MEDS ORDERED: MAGNESIUM SULFATE 1 gm IVPB 1 GM/100 ML BAG IV ONE (07:05)
[2021-07-11] MEDS: hydroCHLOROthiazide 12.5 MG CAP PO SCH (09:14)
[2021-07-11] MEDS: ARIPiprazole 5 MG TAB PO SCH ×2 (09:14→19:48)
[2021-07-11] MEDS: ENOXAPARIN 30 MG/0.3 ML SQ SCH (09:15)
[2021-07-11] MEDS: carvediloL 6.25 MG TAB PO SCH ×2 (09:15→19:49)
[2021-07-11] MEDS: ESCITALOPRAM 20 MG TAB PO SCH (09:15)
[2021-07-11] MEDS: buPROPion HCL 100 MG TAB PO SCH (09:16)
[2021-07-11] MEDS: CEFTRIAXONE 1 GM/NS 50 ML 1 GM/50 ML BAG IV SCH (09:16)
[2021-07-11] MEDS: KCL 20 MEQ/100 mL IVPB 20 MEQ/100 ML BAG IV SCH ×2 (09:17→11:00)
[2021-07-11] MEDS: DONEPEZIL HCL 5 MG TAB PO SCH (19:49)
[2021-07-11] MEDS: MIRTAZAPINE 15 MG TAB PO SCH (19:49)
[2021-07-11] MEDS: NA CHLORIDE 0.9% 1,000 ML IV SCH (19:52)
[2021-07-12 05:41] LABS: Absolute Lymphocytes (CBC) 1.9 K/uL (0.7-4.9); Basophils % 0.5 % (0-1.3); Lymphocytes % 31.2 % (15.3-44.8); MPV 9.5 fL (7.6-11.3); RBC Red Blood Cell Count 3.52 M/uL (3.86-4.86)
[2021-07-12 05:57] LABS: Potassium 3.5 mmol/L (3.5-5.1)
[2021-07-12] MEDS: KCL 20 MEQ/100 mL IVPB 20 MEQ/100 ML BAG IV SCH ×2 (09:40→14:00)
[2021-07-12] MEDS: carvediloL 6.25 MG TAB PO SCH (09:40)
[2021-07-12] MEDS: hydroCHLOROthiazide 12.5 MG CAP PO SCH (09:40)
[2021-07-12] MEDS: ENOXAPARIN 30 MG/0.3 ML SQ SCH (09:40)
[2021-07-12] MEDS: ESCITALOPRAM 20 MG TAB PO SCH (09:40)
[2021-07-12] MEDS: CEFTRIAXONE 1 GM/NS 50 ML 1 GM/50 ML BAG IV SCH (09:40)
[2021-07-12] MEDS: buPROPion HCL 100 MG TAB PO SCH (09:40)
[2021-07-12 10:00] VITALS: O2SAT 98
--- NOTE | 2021-07-12 15:15 | P.DS ---
Admission Date: 07/09/21 Discharge Date: 07/12/21 Disposition: TRANSFER TO CORRECTION Discharge Condition: FAIR Reason for Admission: ROHAN, UTI, fall - Problems (1) Acute metabolic encephalopathy Current Visit: Yes Status: Acute (2) E. coli UTI Current Visit: Yes Status: Acute (3) Dementia Current Visit: Yes Status: Acute (4) Impaired mobility Current Visit: Yes Status: Acute (5) Hypertension Current Visit: Yes Status: Acute (6) Acute worsening of stage 3 chronic kidney disease Current Visit: Yes Status: Acute Brief History of Present Illness: 81-year-old female, PMH: Hypertension, depression, delusional disorder Patient was brought in by EMS from [facility] assisted living after a fall. Patient was confusion and could not fully remember the events leading to the fall. In the ER she was found to have an ROHAN and urinalysis concerning for a urinary tract infection. She was noted to have some confusion, unclear if this was from her baseline. No report of vomiting/diarrhea, no fever/chills. Naida ent not septic. She was admitted for further management of UTI with AMS. Hospital Course: Patient admitted to the medical floor and started on IV Rocephin. Urine culture grew E. coli sensitive to several antibiotics. Patient seen and evaluated by physical therapy. She clinically improved and was able to ambulate. Her mental status also improved and patient currently able to to interact meaningfully. UTI has adequately treated. Patient discharged with oral Cefdinir to complete 7 days of treatment. She needs to continue physical therapy to improve her mobility at the facility. Vital Signs/Physical Exam: Temp Pulse Resp BP Pulse Ox 97.9 F 61 18 128/60 97 07/12/21 12:00 07/12/21 12:00 07/12/21 12:00 07/12/21 12:00 07/12/21 12:00 General: In no apparent distress, Confused HEENT: Mucous membr. moist/pink Neck: JVD not distended Respiratory: Clear to auscultation bilaterally, Normal air movement Cardiovascular: No edema, Regular rate/rhythm, Normal S1 S2 Gastrointestinal: Normal bowel sounds, Soft and benign, Non-distended, No tenderness Musculoskeletal: No swelling Integumentary: No rashes Neurological: Normal speech, Normal strength at 5/5 x4 extr Laboratory Data at Discharge: WBC 6.00 K/uL (4.3-10.9) 07/12/21 05:16 Hgb 10.7 g/dL (12.0-15.0) L 07/12/21 05:16 Hct 32.0 % (36.0-45.0) L 07/12/21 05:16 Plt Count 167 K/uL (152-406) 07/12/21 05:16 PT 11.1 SECONDS (9.5-12.5) 07/09/21 08:28 INR 0.97 07/09/21 08:28 APTT 35.2 SECONDS (24.3-36.9) 07/09/21 08:28 Sodium 144 mmol/L (136-145) 07/12/21 05:16 Potassium 3.5 mmol/L (3.5-5.1) 07/12/21 05:16 BUN 23 mg/dL (7-18) H 07/12/21 05:16 Creatinine 1.56 mg/dL (0.55-1.3) H 07/12/21 05:16 Glucose 104 mg/dL (74-106) 07/12/21 05:16 Phosphorus 3.0 mg/dL (2.5-4.9) 07/11/21 06:22 Magnesium 2.0 mg/dL (1.8-2.4) 07/12/21 05:16 Total Bilirubin 0.9 mg/dL (0.2-1.0) 07/10/21 05:52 AST 18 U/L (15-37) 07/10/21 05:52 ALT 22 U/L (12-78) 07/10/21 05:52 Alkaline Phosphatase 73 U/L (45-117) 07/10/21 05:52 Lipase 242 U/L (73-393) 07/09/21 08:28 Home Medications: ARIPiprazole [Aripiprazole] 10 mg PO DAILY 07/09/21 Acetaminophen [Acetaminophen Extra Strength] 1 tab PO Q6H PRN 07/09/21 Amlodipine Besylate 10 mg PO DAILY 07/09/21 Donepezil HCl 10 mg PO DAILY 07/09/21 Escitalopram [Lexapro*] 20 mg PO DAILY 07/09/21 Mirtazapine 7.5 mg PO DAILY 07/09/21 Multivit,Calc,Mins/Iron/Folic [Thera-M Tablet] 1 tab PO DAILY 07/09/21 Omeprazole 20 mg PO DAILY 07/09/21 carvediloL [Carvedilol] 6.25 mg PO BID 07/09/21 hydroCHLOROthiazide [Hydrochlorothiazide*] 12.5 mg PO DAILY 07/09/21 buPROPion HCL [Bupropion HCl] 100 mg PO DAILY 07/10/21 Cefdinir [Cefdinir*] 300 mg PO BID #8 cap 07/12/21 New Medications: Cefdinir [Cefdinir*] 300 mg PO BID #8 cap Diet: AHA Activity: Fall precautions Followup: Luke Jensen MD [Primary Care Provider] - 1-2 Weeks Time spent managing pt's care (in minutes): 37
[2021-07-12 16:42] VITALS: BP 136/63; TEMP 98.4
[2021-07-12] MEDS ORDERED: CEFDINIR 300 MG CAP PO SCH (21:00)
== END 2021-07-12 18:17 | disposition home or self-care (01) | DRG 689 ==
LOC: ER 07:57 → ERHOLD 11:15 → 2ND 12:46
PROVIDERS: ADMIT Hospitalist; ATTEND Internal Medicine
DX: N30.00 Acute cystitis without hematuria (principal); G93.41 Metabolic encephalopathy; N17.9 Acute kidney failure, unspecified; F03.90 Unspecified dementia, unspecified severity, without behavioral disturbance, psychotic disturbance, mood disturbance, and anxiety; F32.A Depression, unspecified; F22 Delusional disorders; I12.9 Hypertensive chronic kidney disease with stage 1 through stage 4 chronic kidney disease, or unspecified chronic kidney disease; N18.30 Chronic kidney disease, stage 3 unspecified; E86.0 Dehydration; B96.20 Unspecified Escherichia coli [E. coli] as the cause of diseases classified elsewhere; Z66 Do not resuscitate; Z88.0 Allergy status to penicillin; Z87.891 Personal history of nicotine dependence; Z74.09 Other reduced mobility; Z79.899 Other long term (current) drug therapy; Z20.822 Contact with and (suspected) exposure to COVID-19
CPT/HCPCS: 36415; 51702; 70450; 71250; 72125; 80048; 80053; 80076; 81003; 81015; 82550; 82553; 83690; 83735; 84100; 84484; 85025; 85610; 85730; 87077; 87086; 87088; 87186; 93005; 96374; 97116; 97161; 97530; 99285; J0696; J1650; J3475; J3480; J7030; U0003

== ENCOUNTER 2021-11-20 10:05 | Inpatient (IN) | payer OTHER ==
--- OUTSIDE RECORDS SUMMARY | 2021-11-20 10:08 | XMS REPORT | Continuity of Care Document ---
:1940 Author Organization [facility] t Address [address] [place] [address] [address]. Mcl[address] [place] [address] Care Team Providers Name Role Phone DR AISHA Attending Clinician Unavailable DR AISHA Admitting Clinician Unavailable Problems This patient has no known problems. Allergies, Adverse Reactions, Alerts This patient has no known allergies or adverse reactions. Medications This patient has no known medications. Procedures This patient has no known procedures. Encounters Start End Encounter Admission Attending Care Care Encounter Source Date/Time Date/Time Type Type Clinicians Facility Department ID 2019-07-02 2019-07-16 Inpatient E [facility] [id number] [address] [place] [address] 18:56:00 15:00:00 [facility] Results Test Description Test Time Test Comments Results Result Comments Source B12 VITAMIN 2019-07-02 23:33:00 Test Item Value Reference Range Interpretation Comme nts VIT B12 (test code = A60) 267.0 pg/mL 180.0-914.0 [id number] 23:15:00 Test Item Value Reference Range Interpretation Comments Hb A1C % (test code = HBA) 5.7 % 4.2-6.3 LIPID [id number] 19:30:00 Test Item Value Reference Range Interpretation Comments CHOLESTROL (test code = 44A) 213 mg/dL 140-200 H TRIGLYCERI (test code = 42B) 99 mg/dL <=149 HDL (test code = 83D) 82.0 mg/dL 40.0-60.0 H LDL (test code = 34B) 121 mg/dL <=99 H CHL/HDL (test code = CHR) 2.6 0.0-3.4 [id number] 19:30:00 Test Item Value Reference Range Interpretation Comments FOLATE (test code = A75) 7.4 ng/mL 3.1-17.5 THYROID PANEL/SCREEN (TSH)2019-07-02 19:29:00 Test Item Value Reference Range Interpretation Comments TSH (test code = A57) 1.870 uIU/mL 0.358-3.740 [id number] 19:26:00 Test Item Value Reference Range Interpretation Comments PREALBUMIN (test code = 08E) 22 mg/dL 18-38 [id number] 19:14:00 Test Item Value Reference Range Interpretation Comments MAGNESIUM (test code = 48A) 2.2 mg/dL 1.8-2.4 URINALYSIS WITH [id number] 18:27:00 Test Item Value Reference Range Interpretation Comments COLOR (test code = COLU) YELLOW YELLOW CLARITY (test code = CLA) HAZY CLEAR A GLUCOSE UR (test code = UA NEGATIVE NEGATIVE GLUCOSE) BILI UR (test code = BILE) NEGATIVE NEGATIVE KETONES UR (test code = BRENDAN) NEGATIVE NEGATIVE SP GRAVITY (test code = SPGR) 1.011 1.005-1.030 PH UR (test code = PH) 6.5 4.5-8.0 PROTEIN UR (test code = PU) NEGATIVE NEGATIVE UROBIL UR (test code = UROQ) 0.2 EU/dL 0.2-1.0 NITRITE UR (test code = POSITIVE NEGATIVE A NITRITE) BLOOD UR (test code = UA BLOOD) NEGATIVE NEGATIVE LEUK ES UR (test code = LEUK) 2+ NEGATIVE A WBC UR (test code = UWBC) 8 /HPF 0-5 H RBC UR (test code = URBC) 0 /HPF 0-2 EPITH UR (test code = UEPC) FEW /LPF FEW BACTERIA UR (test code = UBACT) MODERATE /HPF NONE A CAST UR (test code = CAST) /LPF NONE CRYSTAL UR (test code = CRYU) / LPF NONE MUCUS UR (test code = MUC) / HPF NONE AMORPH UR (test code = MIGUELINA) / HPF NONE TRICH UR (test code = UTRICH) /HPF NONE YEAST UR (test code = UY) /HPF NONE SPERM UR (test code = USPERM) /HPF NONE DRUGS OF [id number] 18:25:00 Test Item Value Reference Range Interpretation Comments DRUG SCRN (test code URINE DRUG SCREEN = HDOA) This is an unconfirmed screening result and should not be used for non-medical purposes CANNABINOD (test code Negative NEGATIVE = 88C) AMPHETAMINE (test Negative NEGATIVE code = 84A) BENZODIAZP (test code Negative NEGATIVE = 86A) BARBITURAT (test code Negative NEGATIVE = 85A) OPIATES (test code = Negative NEGATIVE 92B) COCAINE (test code = Negative NEGATIVE 87A) PHENCYCLID (test code Negative NEGATIVE = 66A) METHADONE (test code Negative NEGATIVE = 64A) DOAH (test code = DOAH.) *URINE DRUG SCREEN Cut-off values are as follows: Cannabinoids 50 ng/mL Cocaine 300 ng/mL Amphetamines 1000 ng/mL Phencyclidine 25 ng/mL Benzodiazepines 200 ng.mL Methadone 300 ng/mL Barbiturates 200 ng/mL Opiates 2000 ng/mL [id number] 17:35:00 Test Item Value Reference Range Interpretation Comments ACETAMINPH (test code = 94M) <2.0 ug/mL 10.0-30.0 L [id number] 17:34:00 Test Item Value Reference Range Interpretation Comments SALICYLATE (test code = 94B) <1.7 mg/dL 2.8-20.0 L COMPREHENSIVE METABOLIC [id number] 17:21:00 Test Item Value Reference Range Interpretation Comments GLUCOSE (test code = 06D) 96 mg/dL 75-100 SODIUM (test code = 01A) 142 mmol/L 136-145 POTASSIUM (test code = 01B) 4.0 mmol/L 3.6-5.1 CHLORIDE (test code = 04A) 111 mmol/L 98-107 H CO2 (test code = 02A) 26 mmol/L 22-32 ANION GAP (test code = ANG) 9.0 mmol/L BUN (test code = 05D) 15 mg/dL 7-18 CREATININE (test code = 03E) 1.5 mg/dL 0.4-1.1 H BUN/CREA (test code = BCR) 10 12-20 L CALCIUM (test code = 09D) 9.3 mg/dL 8.3-9.5 BILI TOTAL (test code = 11A) 1.0 mg/dL 0.2-1.0 PROTEIN (test code = 07D) 7.3 g/dL 6.4-8.2 ALBUMIN (test code = 08D) 4.1 g/dL 3.5-4.8 GLOBULIN (test code = GLB) 3.2 g/dL 1.5-3.8 ALB/GLOB (test code = AGRR) 1.3 1.0-2.6 ALK PHOS (test code = 35A) 75 IU/L 42-121 AST (test code = 30A) 15 IU/L <=42 ALT (test code = 31A) 16 IU/L <=78 ALCOHOL BLOOD (ETOH)2019-07-02 17:20:00 Test Item Value Reference Range Interpretation Comments ETOH (test code = HALC) ETHANOL The result is to be used only for medical purposes ALCOHOL (test code = <10 mg/dL <=10 56A) PRO TIME AND [id number] 17:13:00 Test Item Value Reference Range Interpretation Comments PT (test code = 11.0 s 9.8-13.6 TT) INR (test code = 1.0 INR) INRH (test code = SUGGESTED INRH) THERAPEUTIC RANGE FOR INR: 2.5 - 3.5 For Patients with Prosthetic Valves or Patients with recurrent Thromboembolic Events 2.0 - 3.0 For Most Other Applications PTT (test code = 36.3 s 20.2-38.0 PTT) PTTH (test code = To monitor the PTTH) effectiveness of heparin, we offer the Anti-Xa (Heparin Assay). It can be used for either unfractionated or LMW Heparin. Order Code is ANTI-XA XR CHEST 1 VIEW [id number] 17:10:07EXAM: XR CHEST 1 VIEW PORTABLE.LOCATION: D4.HISTORY: [id number]: Psychiatric treatment changed.COMPARI SON: None.TECHNIQUE: Single AP view of the chest was obtained. FINDINGS:Patient is rotated to the left. The heart is normal in size. Calcifications areseen at the aortic arch. The lungs are clear. No acute osseous abnormality isidentified.IMPRESSION:No acute cardiopulmonary abnormality.CARDIAC PROFILE 2019-07-02 17:09:00 Test Item Value Reference Range Interpretation Comments TROPONIN I (test code = A84) <0.015 ng/mL 0.000-0.045 AMMONIA [id number] 17:05:00 Test Item Value Reference Range Interpretation Comments AMMONIA (test code = 54A) <10 umol/L 11-32 L CBC (INCLUDES AUTOMATED DIFFERENTIAL)2019-07-02 17:02:00 Test Item Value Reference Range Interpretation Comments WBC (test code = WBC) 6.7 10\S\3/uL 4.5-11.0 RBC (test code = RBC) 4.13 10\S\6/uL 3.80-5.80 HGB (test code = HBG) 12.4 g/dL 12.0-15.5 HCT (test code = HCT) 38.5 % 35.0-44.0 MCV (test code = MCV) 93.2 fL 81.0-99.0 MCH (test code = MCH) 30.0 pg 27.0-31.0 MCHC (test code = MCHC) 32.2 g/dL 32.0-36.0 RDW (test code = RDW) 13.1 % 11.5-14.5 PLT (test code = PLT) 183 10\S\3/uL 130-400 MPV (test code = MPV) 11.9 fL 9.4-12.4 NEUTROP # (test code = NE#) 4.7 10\S\3/uL 1.6-8.0 LYMPH # (test code = LY#) 1.4 10\S\3/uL 1.1-3.5 MONOCYTE # (test code = MO#) 0.5 10\S\3/uL 0.0-1.1 EOSINOPH # (test code = EO#) 0.1 10\S\3/uL 0.0-0.7 BASOPHIL # (test code = BA#) 0.0 10\S\3/uL 0.0-0.3 IG # (test code = IG#) 0.01 10\S\3/uL 0.00-0.06 NRBC # (test code = NRBC#) 0.00 10\S\3/uL 0.00-0.01 NEUTROPH % (test code = NE%) 69.5 % 35.0-73.0 LYMPH % (test code = LY%) 21.0 % 20.0-55.0 MONO % (test code = MO%) 7.9 % 2.5-10.0 EOSINOPH % (test code = EO%) 1.2 % 0.0-5.0 BASOPHIL % (test code = BA%) 0.3 % 0.0-2.0 IG % (test code = IG%) 0.1 % 0.0-0.8 NRBC% (test code = NRBC%) 0.0 % 0.0-0.2 MANDIFF (test code = MDIFF) NO NO RBC MORPH (test code = RBCMOR) NORMAL
[2021-11-20 11:09] LABS: Hematocrit 31.5 % (36.0-45.0); Lymphocytes % 7.1 % (15.3-44.8); MPV 8.9 fL (7.6-11.3); RBC Red Blood Cell Count 3.58 M/uL (3.86-4.86)
[2021-11-20] MEDS ORDERED: NA CHLORIDE 0.9% 500 ML ONE (11:14)
[2021-11-20] MEDS ORDERED: FENTANYL CITR 100 MCG/2 ML ONE (11:43)
[2021-11-20 11:52] LABS: Albumin 3.2 g/dL (3.4-5.0); Bilirubin Direct 0.1 mg/dL (0-0.2); Bilirubin Total 0.5 mg/dL (0.2-1.0); Magnesium 1.8 mg/dL (1.8-2.4); Potassium 3.3 mmol/L (3.5-5.1); Protein, Total 6.7 g/dL (6.4-8.2); Troponin High Sensitivity 9.6 pg/mL (<58.9)
--- NOTE | 2021-11-20 12:29 | RAD REPORT ---
EXAM DESCRIPTION: RAD - Femur Right - 11/20/2021 12:05 pm CLINICAL HISTORY: PAIN COMPARISON: No comparisons FINDINGS: No acute fracture. No malalignment. Status post right total knee arthroplasty. IMPRESSION: No acute osseous abnormality involving the right knee.
--- NOTE | 2021-11-20 12:29 | RAD REPORT ---
EXAM DESCRIPTION: RAD - Hip Right 2 View - 11/20/2021 12:05 pm CLINICAL HISTORY: PAIN COMPARISON: No comparisons FINDINGS: Displaced subcapital right femoral neck fracture with superior and lateral displacement an d varus deformity. No dislocation . IMPRESSION: Displaced right subcapital femoral neck fracture.
--- NOTE | 2021-11-20 12:30 | RAD REPORT ---
EXAM DESCRIPTION: RAD - Chest Single View - 11/20/2021 12:05 pm CLINICAL HISTORY: COUGH COMPARISON: Chest Pa And Lat (2 Views) dated 10/12/2017; CHEST SINGLE VIEW dated 10/07/2015; CHEST PA A ND LAT 2 VIEW dated 11/04/2013; CHEST PA AND LAT 2 VIEW dated 01/07/2009 FINDINGS: Lines: None. Lungs: Mild opacities are present the left lung base. Pleural: No significant pleural effusions or pneumothorax. Cardiac: The heart size is within normal limits. Bones: No acute fractures. Other: IMPRESSION: Mild linear opacities at the left lung base favored to represent atelectasis.
--- NOTE | 2021-11-20 12:30 | RAD REPORT ---
EXAM DESCRIPTION: RAD - Pelvis - 11/20/2021 12:05 pm CLINICAL HISTORY: PAIN COMPARISON: No comparisons FINDINGS: Displaced right subcapital femoral neck fracture. No pelvic fractures identified. The left hip appears intact. IMPRESSION: Displaced right femoral neck fracture. The bony pelvis is intact.
--- NOTE | 2021-11-20 13:24 | ER ---
Nurse's Notes [facility] Name: Corinne Ordaz Age: 81 yrs Sex: Female : 1940 Arrival Date: 11/20/2021 Time: 10:06 Bed 13 Private MD: Diagnosis: Fall on same level, unspecified;Displaced fracture of base of neck of right femur;Dementia in other diseases classified elsewhere without behavioral disturbance;Unspecified kidney failure-insufficency Presentation: 11/20 10:00 Chief complaint: Patient states: pt threw patio furniture at other resident and fell, cb5 pain in right hip. Coronavirus screen: Client denies travel out of the [place] in the last 14 days. Client indicates they have traveled out of the [place] in the last 14 days. Ebola Screen: Patient negative for fever greater than or equal to 101.5 degrees Fahrenheit, and additional compatible Ebola Virus Disease symptoms Patient denies exposure to infectious person. Patient denies travel to an Ebola-affected area in the 21 days before illness onset. Initial Sepsis Screen: Does the patient have a suspected source of infection? No. Patient's initial sepsis screen is negative. Risk Assessment: Do you want to hurt yourself or someone else? Patient reports no desire to harm self or others. 10:00 Method Of Arrival: EMS: [facility] cb5 10:00 Acuity: MELE 3 cb5 18:02 Care prior to arrival: None. Mechanism of Injury: Fall. Trauma event details: Injury ll1 occurred in the [facility]. 18:03 Initial Sepsis Screen: Does the patient meet any 2 criteria? No. Patient's initial 1 sepsis screen is negative. Onset of symptoms was November 20, 2021. Triage Assessment: 10:00 General: Appears in no apparent distress. comfortable, Behavior is calm, cooperative, cb5 appropriate for age. Pain: Complains of pain in right hip Pain currently is 4 out of 10 on a pain scale. EENT: No deficits noted. Neuro: Level of Consciousness is awake, alert, history of dementia. Cardiovascular: No deficits noted. Respiratory: No deficits noted. GI: No deficits noted. : No deficits noted. Derm: Parent/caregiver reports the patient having yellow markings to right breast, chest wall and left deltoid, redness to right hip. Musculoskeletal: Parent/caregiver report the patient having right hip pain after falling. Trauma Activation: Alert Physician: ED Physician; Name: ; Notified At: ; Arrived At: Physician: General Surgeon; Name: ; Notified At: ; Arrived At: Physician: Radiology; Name: ; Notified At: ; Arrived At: Physician: Respiratory; Name: ; Notified At: ; Arrived At: Physician: Lab; Name: ; Notified At: ; Arrived At: Historical: - PMHx: 10:20 colon cancer; Depression; Hypertension; cb5 - Immunization history:: Adult Immunizations up to date. - Immunization history: Last tetanus immunization: - up to date. - Social history:: Smoking status: . - Family history:: not pertinent. Screenin:18 Abuse screen: Denies threats or abuse. Denies injuries from another. Nutritional cb5 screening: No deficits noted. Tuberculosis screening: No symptoms or risk factors identified. 18:03 Fall Risk Fall in past 12 months (25 points). Secondary diagnosis (15 points) ll1 Alzheimer's, IV access (20 points). Ambulatory Aid- Crutches/Cane/Walker (15 pts). Gait- Impaired (20 pts.). Total [place] Fall Scale indicates High Risk Score (45 or more points). Fall prevention measures have been instituted. Side Rails Up X 2 Placed Close to Nursing Station 1:1 Attendant Assigned Frequent Obs/Assessments Occuring Family Present and informed to notify staff if the need to leave the bedside As available patient and family educated on Fall Prevention Program and Strategies. Primary Survey: 18:01 NO uncontrolled hemorrhage observed. A: The patient is alert. Airway: patent. ll1 Breathing/Chest: Respiratory effort: spontaneous, unlabored. Circulation: Pulses: palpable right radial artery and left radial artery. Disability Alert. Exposure/Environment: A warming method has been applied: A warm blanket has been provided to the patient. 18:02 Reassessment Airway Airway Patent Breathing/Chest Respiratory pattern Regular ll1 Circulation Pulses Palpable Disability Alert. Assessment: 10:18 General: see traige assessment bu this nurse. cb5 10:35 General: nurse attempted P.I.V placement able to obtain blood specimens, no I.V.. cb5 10:50 General: P.I.V placed in left AC, pt tole well, obtained CBC and sent to lab. cb5 11:00 Reassessment: Patient and/or family updated on plan of care and expected duration. Pain cb5 level reassessed. 11:38 Pain: Complains of pain in right leg and right hip Pain Unable to use pain scale. pt is cb5 crying and stating pain, pain, pain. Pt is touching right hip. Notifed M.D. 12:15 Pain: Unable to use pain scale. pt is calm, no longer crying, pt smiling, watching t.V. cb5 12:30 Reassessment: Patient and/or family updated on plan of care and expected duration. Pain cb5 level reassessed. 13:30 Reassessment: Patient and/or family updated on plan of care and expected duration. Pain cb5 level reassessed. 13:59 General: patients P.O.A Dr. Guillaume Martinez [phone] Carcamo gave cb5 consent for surgery.. 14:30 Reassessment: Patient and/or family updated on plan of care and expected duration. Pain cb5 level reassessed. 15:30 Reassessment: Patient and/or family updated on plan of care and expected duration. Pain cb5 level reassessed. 16:14 General: Attempted to call report, nurse will call back. cb5 16:36 General: called report to Nicol Herzog cb5 Vital Signs: 10:00 BP 123 / 62; Pulse 95; Resp 16; Temp 98.6; Pulse Ox 95% ; Weight 70.31 kg; Height 5 ft. cb5 6 in. (167.64 cm); Pain 4/10; 12:00 BP 138 / 64; Pulse 98; Resp 16; Pulse Ox 98% ; cb5 13:00 BP 114 / 60; Pulse 98; Resp 16; Pulse Ox 99% ; cb5 13:30 BP 120 / 89; Pulse 98; Resp 16; Pulse Ox 99% ; cb5 13:30 BP 149 / 61; Pulse 98; Resp 16; Pulse Ox 98% ; cb5 14:30 BP 145 / 80; Pulse 97; Resp 16; Pain 2/10; cb5 10:00 Body Mass Index 25.02 (70.31 kg, 167.64 cm) cb5 [place] Coma Score: 18:01 Eye Response: spontaneous(4). Verbal Response: confused(4). Motor Response: obeys ll1 commands(6). Total: 14. Trauma Score (Adult): 18:01 Eye Response: spontaneous(1); Verbal Response: confused(1); Motor Response: obeys ll1 commands(2); Systolic BP: > 89 mm Hg(4); Respiratory Rate: 10 to 29 per min(4); [place] Score: 14; Trauma Score: 12 ED Course: 10:06 Patient arrived in ED. ds1 10:08 Paulo Carcamo MD is Attending Physician. ligia 10:10 Lorena Schneider, RN is Primary Nurse. cb5 10:13 Triage completed. cb5 10:18 Arm band placed on. cb5 10:19 Placed in gown. Call light in reach. Side rails up X2. cb5 10:19 No provider procedures requiring assistance completed. cb5 10:54 Basic Metabolic Panel Sent. cb5 10:54 PT-INR Sent. cb5 10:54 Troponin HS Sent. cb5 11:06 CBC with Diff Sent. cb5 11:06 Basic Metabolic Panel Sent. cb5 12:04 XRAY Chest (1 view) In Process Unspecified. EDMS 12:05 Pelvis XRAY In Process Unspecified. EDMS 12:05 Hip Right 2 View XRAY In Process Unspecified. EDMS 12:05 Femur Right XRAY In Process Unspecified. EDMS 13:22 Dinesh Luciano is Hospitalizing Provider. [facility] 14:00 [place] cath inserted, using sterile technique, 18 Fr., by me, balloon inflated, to jd3 gravity drainage, returned ar urine. Patient tolerated well. 14:10 CT Pelvis wo Cont: atten bilateral hips In Process Unspecified. EDMS 14:38 Urine Culture Sent. cb5 14:38 Urine Culture Sent. cb5 18:03 Patient maintains SpO2 saturation greater than 95% on room air. Thermoregulation: warm ll1 blanket given to patient. 18:03 Patient admitted, IV remains in place. ll1 Administered Medications: 11:10 Drug: NS 0.9% 500 ml Route: IV; Rate: bolus; Site: left antecubital; cb5 18:01 Follow up: Response: No adverse reaction; IV Status: Completed infusion; IV Intake: ll1 500ml 11:47 Drug: fentaNYL (PF) 25 mcg Route: IVP; Site: right antecubital; cb5 18:00 Follow up: Response: No adverse reaction; RASS: Alert and Calm (0) 1 13:20 Drug: Rocephin (cefTRIAXone) 1 grams Route: IV; Rate: per protocol; Site: left forearm; cb5 18:00 Follow up: Response: No adverse reaction; IV Status: Completed infusion; IV Intake: [id number] 13:25 Drug: NS 0.9% 1000 ml Route: IV; Rate: 125 ml/hr; Site: left forearm; cb5 18:00 Follow up: Response: No adverse reaction; IV Status: Completed infusion; IV Intake: ll1 1000ml Intake: 18:00 IV: 1000ml; Total: 1000ml. ll1 18:00 IV: 50ml; Total: 1050ml. ll1 18:01 IV: 500ml; Total: 1550ml. 1 Outcome: 13:23 Decision to Hospitalize by Provider. ligia 17:59 Patient left the ED. 1 18:02 Admitted to Med/surg accompanied by tech, via stretcher, with chart. 1 18:02 Condition: stable 18:03 Instructed on the need for admit. [facility] Signatures: Dispatcher [employer] EDPaulo Cabrera MD MD cha [place], Demi dsHenok Nunez RN RN Fly Oleary RN RN ll1 Lorena Schneider, ROSALIND RN cb5
--- NOTE | 2021-11-20 13:24 | EDPHYS ---
Physician Documentation [facility] Name: Corinne Ordaz Age: 81 yrs Sex: Female : 1940 Arrival Date: 11/20/2021 Time: 10:06 Bed 13 Private MD: ED Physician Paulo Cracamo HPI: 11/20 10:34 This 81 yrs old Female presents to ER via EMS with complaints of Fall Injury. ligia 10:34 Details of fall: The patient fell from a height, off furniture, approximately 2 feet. ligia Onset: The symptoms/episode began/occurred just prior to arrival, this morning. Associated injuries: The patient sustained right femoral area, right iliac crest and right hip, decreased range of motion, painful injury. Severity of symptoms: At their worst the symptoms were moderate, in the emergency department the symptoms are unchanged. The patient has not experienced similar symptoms in the past. Historical: - PMHx: 10:20 colon cancer; Depression; Hypertension; cb5 - Immunization history:: Adult Immunizations up to date. - Immunization history: Last tetanus immunization: - up to date. - Social history:: Smoking status: . - Family history:: not pertinent. ROS: 10:34 Constitutional: Negative for fever, chills, and weight loss, Eyes: Negative for injury, ligia pain, redness, and discharge, ENT: Negative for injury, pain, and discharge, Neck: Negative for injury, pain, and swelling, Cardiovascular: Negative for chest pain, palpitations, and edema, Respiratory: Negative for shortness of breath, cough, wheezing, and pleuritic chest pain, Abdomen/GI: Negative for abdominal pain, nausea, vomiting, diarrhea, and constipation, Back: Negative for injury and pain, : Negative for injury, bleeding, discharge, and swelling, Skin: Negative for injury, rash, and discoloration, Neuro: Negative for headache, weakness, numbness, tingling, and seizure, Psych: Negative for depression, anxiety, suicide ideation, homicidal ideation, and hallucinations, Allergy/Immunology: Negative for hives, rash, and allergies, Endocrine: Negative for neck swelling, polydipsia, polyuria, polyphagia, and marked weight changes, Hematologic/Lymphatic: Negative for swollen nodes, abnormal bleeding, and unusual bruising. 10:34 MS/extremity: Positive for decreased range of motion, pain, tenderness, of the right hip, lateral aspect of right thigh, right upper thigh and right quadriceps. 10:34 Neuro: Positive for altered mental status. Exam: 10:34 Constitutional: This is a well developed, well nourished patient who is awake, alert, ligia and in no acute distress. Head/Face: Normocephalic, atraumatic. Eyes: Pupils equal round and reactive to light, extra-ocular motions intact. Lids and lashes normal. Conjunctiva and sclera are non-icteric and not injected. Cornea within normal limits. Periorbital areas with no swelling, redness, or edema. ENT: Nares patent. No nasal discharge, no septal abnormalities noted. Tympanic membranes are normal and external auditory canals are clear. Oropharynx with no redness, swelling, or masses, exudates, or evidence of obstruction, uvula midline. Mucous membranes moist. Neck: Trachea midline, no thyromegaly or masses palpated, and no cervical lymphadenopathy. Supple, full range of motion without nuchal rigidity, or vertebral point tenderness. No Meningismus. Chest/axilla: Normal chest wall appearance and motion. Nontender with no deformity. No lesions are appreciated. Cardiovascular: Regular rate and rhythm with a normal S1 and S2. No gallops, murmurs, or rubs. Normal PMI, no JVD. No pulse deficits. Respiratory: Lungs have equal breath sounds bilaterally, clear to auscultation and percussion. No rales, rhonchi or wheezes noted. No increased work of breathing, no retractions or nasal flaring. Abdomen/GI: Soft, non-tender, with normal bowel sounds. No distension or tympany. No guarding or rebound. No evidence of tenderness throughout. Back: No spinal tenderness. No costovertebral tenderness. Full range of motion. Female : Normal external genitalia. Skin: Warm, dry with normal turgor. Normal color with no rashes, no lesions, and no evidence of cellulitis. Neuro: Awake and alert, GCS 15, oriented to person, place, time, and situation. Cranial nerves II-XII grossly intact. Motor strength 5/5 in all extremities. Sensory grossly intact. Cerebellar exam normal. Normal gait. Psych: Awake, alert, with orientation to person, place and time. Behavior, mood, and affect are within normal limits. 10:34 Musculoskeletal/extremity: Extremities: noted in the right hip, lateral aspect of right thigh and right upper thigh: decreased ROM, pain, DVT Exam: no swelling, negative Homans' sign noted on exam, no appreciated bluish discoloration, no erythema, no increased warmth, pain, tenderness. 11:52 ECG was reviewed by the Attending Physician. [facility] Vital Signs: 10:00 BP 123 / 62; Pulse 95; Resp 16; Temp 98.6; Pulse Ox 95% ; Weight 70.31 kg; Height 5 ft. cb5 6 in. (167.64 cm); Pain 4/10; 12:00 BP 138 / 64; Pulse 98; Resp 16; Pulse Ox 98% ; cb5 13:00 BP 114 / 60; Pulse 98; Resp 16; Pulse Ox 99% ; cb5 13:30 BP 120 / 89; Pulse 98; Resp 16; Pulse Ox 99% ; cb5 13:30 BP 149 / 61; Pulse 98; Resp 16; Pulse Ox 98% ; cb5 14:30 BP 145 / 80; Pulse 97; Resp 16; Pain 2/10; cb5 10:00 Body Mass Index 25.02 (70.31 kg, 167.64 cm) cb5 [place] Coma Score: 18:01 Eye Response: spontaneous(4). Verbal Response: confused(4). Motor Response: obeys ll1 commands(6). Total: 14. Trauma Score (Adult): 18:01 Eye Response: spontaneous(1); Verbal Response: confused(1); Motor Response: obeys ll1 commands(2); Systolic BP: > 89 mm Hg(4); Respiratory Rate: 10 to 29 per min(4); Isidra Score: 14; Trauma Score: 12 MDM: 10:08 Patient medically screened. [facility] 10:37 Differential diagnosis: fracture, multiple trauma, sprain, strain. Data reviewed: vital ligia signs, nurses notes, lab test result(s), EKG, radiologic studies, plain films. Data interpreted: quality assurance monitor body: rate is 95 beats/min, rhythm is regular, Pulse oximetry: on room air is 95 %. Test interpretation: by ED physician or midlevel provider: ECG, plain radiologic studies. Counseling: I had a detailed discussion with the patient and/or guardian regarding: the historical points, exam findings, and any diagnostic results supporting the discharge/admit diagnosis, lab results, radiology results. 11/20 10:34 Order name: Basic Metabolic Panel; Complete Time: 13:[address] [facility] 11/20 10:34 Order name: CBC with Diff; Complete Time: 13:[address] [facility] 11/20 10:34 Order name: LFT's; Complete Time: 13:[address] [facility] 11/20 10:34 Order name: Magnesium; Complete Time: 13:[address] [facility] 11/20 10:34 Order name: PT-INR 11/20 10:34 Order name: Troponin HS; Complete Time: 13:[address] [facility] 11/20 10:34 Order name: XRAY Chest (1 view); Complete Time: 13:[address] [facility] 11/20 10:34 Order name: Pelvis XRAY; Complete Time: 13:[address] [facility] 11/20 10:34 Order name: Hip Right 2 View XRAY; Complete Time: 13:[address] [facility] 11/20 10:34 Order name: Femur Right XRAY; Complete Time: 13:[address] [facility] 11/20 13:06 Order name: Urine Culture [facility] 11/20 13:06 Order name: Urine Culture EDAR 11/20 13:40 Order name: CT Pelvis wo Cont: atten bilateral hips [facility] 11/20 16:49 Order name: COVID 19 CPL (Document "Date of Onset" if Symptomatic) ll1 11/20 10:34 Order name: EKG; Complete Time: 10:[address] [facility] 11/20 10:34 Order name: Cardiac monitoring; Complete Time: 10:[address] [facility] 11/20 10:34 Order name: EKG - Nurse/Tech; Complete Time: 10:[address] [facility] 11/20 10:34 Order name: IV Saline Lock; Complete Time: 11:05 ligia 11/20 10:34 Order name: Labs collected and sent; Complete Time: 11:[address] [facility] 11/20 10:34 Order name: O2 Per Protocol; Complete Time: 10:[address] [facility] 11/20 10:34 Order name: O2 Sat Monitoring; Complete Time: 10:[address] [facility] 11/20 13:06 Order name: Urine Dipstick-Ancillary (obtain specimen); Complete Time: 14:[address] [facility] 11/20 13:06 Order name: De La Paz; Complete Time: 13:[address] [facility] EC:52 Rate is 101 beats/min. Rhythm is regular. QRS [place] is Normal. IA interval is normal. ligia QRS interval is normal. QT interval is normal. No Q waves. T waves are Normal. No ST changes noted. Clinical impression: NSR w/ Non-specific ST/T Changes and No evidence of ischemia. Interpreted by me. Reviewed by me. Administered Medications: 11:10 Drug: NS 0.9% 500 ml Route: IV; Rate: bolus; Site: left antecubital; cb5 18:01 Follow up: Response: No adverse reaction; IV Status: Completed infusion; IV Intake: ll1 500ml 11:47 Drug: fentaNYL (PF) 25 mcg Route: IVP; Site: right antecubital; cb5 18:00 Follow up: Response: No adverse reaction; RASS: Alert and Calm (0) ll1 13:20 Drug: Rocephin (cefTRIAXone) 1 grams Route: IV; Rate: per protocol; Site: left forearm; cb5 18:00 Follow up: Response: No adverse reaction; IV Status: Completed infusion; IV Intake: [id number] 13:25 Drug: NS 0.9% 1000 ml Route: IV; Rate: 125 ml/hr; Site: left forearm; cb5 18:00 Follow up: Response: No adverse reaction; IV Status: Completed infusion; IV Intake: ll1 1000ml Disposition Summary: 11/20/21 13:23 Hospitalization Ordered Hospitalization Status: Inpatient Admission ligia Provider: Dinesh Luciano cha Location: Telemetry/MedSurg (Inpatient) ligia Condition: Fair ligia Problem: new ligia Symptoms: have improved ligia Bed/Room Type: Standard ligia Room Assignment: 201(11/20/21 16:11) dw Diagnosis - Fall on same level, unspecified ligia - Displaced fracture of base of neck of right femur ligia - Dementia in other diseases classified elsewhere without behavioral disturbance ligia - Unspecified kidney failure - insufficency ligia Forms: - Medication Reconciliation Form ligia - SBAR form ligia Signatures: Dispatcher [employer] Belkys Rachel RN RN dw Anderson, Corey, MD MD cha Lewis, Lynsay, RN RN 1 Lorena Schneider RN RN cb5 Corrections: (The following items were deleted from the chart) 16:11 13:23 ligia dw
[2021-11-20] MEDS ORDERED: CEFTRIAXONE 1000 MG/VIAL ONE (13:32)
[2021-11-20 14:06] LABS: Protime INR 1.06
--- NOTE | 2021-11-20 14:25 | RAD REPORT ---
EXAM DESCRIPTION: CT - Pelvis Wo Cont - 11/20/2021 2:10 pm CLINICAL HISTORY: PAIN COMPARISON: No comparisons FINDINGS: Displaced right-sided intertrochanteric hip fracture which is comminuted. There is superio r and lateral displacement distal fragment. The fracture includes both the greater and lesser trochan ter. Remote left obturator ring fracture. No dislocation. Large volume of stool in the rectum. De La Paz catheter in the bladder. IMPRESSION: Right intertrochanteric hip fracture with displacement. No dislocation. Large rectal stool burden could indicate fecal impaction.
--- NOTE | 2021-11-20 14:41 | P.HP ---
Certification for Inpatient Patient admitted to: Inpatient With expected LOS: >2 Midnights Practitioner: I am a practitioner with admitting privileges, knowledge of patient current condition, hospital course, and medical plan of care. Services: Services provided to patient in accordance with Admission requirements found in Title 42 Section 412.3 of the Code of Federal Regulations Patient History Date of Service: 11/20/21 Reason for admission: Fall History of Present Illness: 81-year-old woman from assisted living, bedridden, history of dementia, subdural and subarachnoid hematoma was brought to the emergency department after a fall. Patient is reported to have fallen from her bed this morning. Patient has dementia and cannot give any subjective complaint. I met the tire mold tester by her bedside to give the history. Imaging done in the emergency department shows right intertrochanteric fracture with displacement. Orthopedic surgery informed by the ED physician. Labs shows leukocytosis. Patient does not meet criteria for sepsis. De La Paz catheter inserted and patient hospitalized for further management. Allergies No Known Allergies Allergy (Uncoded 10/12/17 22:13) Unknown PENICILLINS Allergy (Uncoded 08/18/15 21:12) Unknown Home Medications: ARIPiprazole [Aripiprazole] 10 mg PO DAILY 07/09/21 Acetaminophen [Acetaminophen Extra Strength] 1 tab PO Q6H PRN 07/09/21 Amlodipine Besylate 10 mg PO DAILY 07/09/21 Donepezil HCl 10 mg PO DAILY 07/09/21 Escitalopram [Lexapro*] 20 mg PO DAILY 07/09/21 Mirtazapine 7.5 mg PO DAILY 07/09/21 Multivit,Calc,Mins/Iron/Folic [Thera-M Tablet] 1 tab PO DAILY 07/09/21 Omeprazole 20 mg PO DAILY 07/09/21 carvediloL [Carvedilol] 6.25 mg PO BID 07/09/21 hydroCHLOROthiazide [Hydrochlorothiazide*] 12.5 mg PO DAILY 07/09/21 buPROPion HCL [Bupropion HCl] 100 mg PO DAILY 07/10/21 Cefdinir [Cefdinir*] 300 mg PO BID #8 cap 07/12/21 - Past Medical/Surgical History Diabetic: No -: Hypertension -: Depression -: Delusional disorder -: Dementia -: Subdural/Subarachnoid bleed- neuro compression - Social History Alcohol use: No CD- Drugs: No Review of Systems is unable to be obtained Physical Examination - Physical Exam General: In no apparent distress, Confused, Other (Awake) HEENT: Atraumatic, PERRLA, Mucous membr. moist/pink, EOMI, Sclerae nonicteric Neck: Supple, JVD not distended Respiratory: Clear to auscultation bilaterally, Normal air movement Cardiovascular: No edema, Regular rate/rhythm, Normal S1 S2, Edema (Bilateral legs) Gastrointestinal: Soft and benign, Non-distended, No tenderness Musculoskeletal: No swelling, No tenderness Integumentary: No rashes, No cyanosis Neurological: Other (She moves all extremities spontaneously) Lymphatics: No axilla or inguinal lymphadenopathy - Studies Laboratory Data (last 24 hrs) 11/20/21 13:40: PT 11.7, INR 1.06 11/20/21 11:21: Sodium 142, Potassium 3.3 L, BUN 24 H, Creatinine 1.58 H, Glucose 142 H, Magnesium 1.8, Total Bilirubin 0.5, AST 18, ALT 26, Alkaline Phosphatase 80 11/20/21 11:03: WBC 14.00 H, Hgb 10.4 L, Hct 31.5 L, Plt Count 298 Assessment and Plan - Problems (Diagnosis) (1) Right femoral fracture Current Visit: Yes Status: Acute (2) Chronic kidney disease, stage III (moderate) Current Visit: Yes Status: Acute (3) Dementia Current Visit: No Status: Acute (4) Hypertension Current Visit: No Status: Acute - Plan Admit to the medical floor. Orthopedic surgery consulted. Supportive measures-pain management as needed Optimize electrolytes. No active cardiac disease. Obtain UA DVT prophylaxis. Keep n.p.o. overnight. Reconcile and continue other home medications. - Advance Directives Does patient have a Living Will: No Does patient have a Durable POA for Healthcare: No
[2021-11-20 19:35] VITALS: BMI 25.0
[2021-11-20] MEDS ORDERED: ONDANSETRON 4 MG/2 ML VIAL IV PRN (19:35)
[2021-11-20] MEDS ORDERED: ACETAMINOPHEN 500 MG TAB PO PRN ×2 (19:35→20:59)
[2021-11-20] MEDS ORDERED: MORPHINE 2 MG/ML SYR IV PRN (19:35)
[2021-11-20] MEDS ORDERED: HYDROCODONE/APAP 5/325 MG TAB PO PRN (19:35)
[2021-11-20] MEDS ORDERED: ZOLPIDEM TARTRATE 5 MG TABLET PO PRN (21:00)
[2021-11-20] MEDS: METHSCOPOLAMINE BROMIDE PO SCH (21:00)
[2021-11-20] MEDS: NA CHLORIDE 0.9% 1,000 ML IV SCH (21:05)
[2021-11-20] MEDS: carvediloL 6.25 MG TAB PO SCH (21:35)
[2021-11-20] MEDS: ARIPiprazole 5 MG TAB PO SCH (21:36)
[2021-11-21 03:54] LABS: Absolute Lymphocytes (CBC) 1.2 K/uL (0.7-4.9); Hematocrit 25.9 % (36.0-45.0); Lymphocytes % 14.3 % (15.3-44.8); MPV 9.4 fL (7.6-11.3); RBC Red Blood Cell Count 2.87 M/uL (3.86-4.86)
[2021-11-21 04:22] LABS: Albumin 2.6 g/dL (3.4-5.0); Bilirubin Total 0.5 mg/dL (0.2-1.0); Magnesium 1.8 mg/dL (1.8-2.4); Phosphorus 3.2 mg/dL (2.5-4.9); Potassium 3.2 mmol/L (3.5-5.1); Protein, Total 5.6 g/dL (6.4-8.2); Thyroid Stimulating Hormone 2.72 uIU/mL (0.360-3.740)
[2021-11-21 04:28] LABS: Urine Appearance CLOUDY (Clear); Urine Bilirubin NEGATIVE (Negative); Urine Blood 2+ (Negative); Urine Color YELLOW (Yellow); Urine Glucose NEGATIVE (Negative); Urine Protein TRACE (Negative); Urine Specific Gravity 1.015 (1.005-1.030)
[2021-11-21 04:48] LABS: Urine Bacteria >50 /HPF (<20); Urine Urothelial Cells <5 /HPF (NONE SEEN)
[2021-11-21 04:49] LABS: Urine RBC <5 /HPF (NONE SEEN)
[2021-11-21] MEDS: NA CHLORIDE 0.9% 1,000 ML IV SCH ×2 (07:05→15:35)
[2021-11-21] MEDS: MULTIVIT W/ MINERAL TAB PO SCH (08:29)
[2021-11-21] MEDS: ENOXAPARIN 30 MG/0.3 ML SQ SCH (08:35)
[2021-11-21] MEDS: METHSCOPOLAMINE BROMIDE PO SCH ×2 (08:35→21:00)
[2021-11-21] MEDS: ESCITALOPRAM 20 MG TAB PO SCH (08:35)
[2021-11-21] MEDS: hydroCHLOROthiazide 12.5 MG CAP PO SCH (08:36)
[2021-11-21] MEDS: MIRTAZAPINE 15 MG TAB PO SCH (08:36)
[2021-11-21] MEDS: buPROPion HCL 100 MG TAB PO SCH (08:36)
[2021-11-21] MEDS: carvediloL 6.25 MG TAB PO SCH ×2 (08:36→21:33)
[2021-11-21] MEDS: PANTOPRAZOLE 40MG TABLET PO SCH (08:36)
[2021-11-21] MEDS: AMLODIPINE 10 MG TAB PO SCH (08:38)
[2021-11-21] MEDS: KCL 20 MEQ/100 mL IVPB 20 MEQ/100 ML BAG IV SCH ×2 (08:38→10:47)
[2021-11-21] MEDS ORDERED: POTASSIUM 25 MEQ EFFERV TAB PO ONE (09:00)
[2021-11-21] MEDS ORDERED: TRANEXAMIC ACID 1,000 MG in NA CHLORIDE 0.9% 50 ML IV ONE (10:00)
--- NOTE | 2021-11-21 12:07 | CON ---
Date of Consultation: 11/21/2021 Reason For Consultation: Right hip pain. History Of Present Illness: Corinne is an 81-year-old female who presented to the ER yesterday, after sustaining a fall onto her right side with subsequent pain. The patient underwent x-rays which demonstrated a right intertrochanteric femur fracture. Patient has dementia and history background was obtained from her nephew. The patient is nonambulatory and mobilized using a wheelchair. She was recently placed in the hospice around 1 month ago. Review of Systems: As above, otherwise, negative. Past Medical History: Includes dementia, depression, hypertension. Past Surgical History: Unable to be obtained. Home Medications: Per medication reconciliation per med list. Allergies: PENICILLIN. Social History: No tobacco or drugs. No alcohol. Physical Examination: General: No apparent distress. HEENT: Normocephalic, atraumatic. Neck: Supple. Cardiovascular: Brisk cap refill to all digits. Chest: Nonlabored breathing. Abdomen: Nondistended. Psychiatric: Responsive to exam. Musculoskeletal: Bilateral upper extremities functional range of motion without pain. No gross deformities. No obvious dislocations. Left lower extremity functional range of motion without pain. No gross deformities. No obvious dislocations. Right lower extremity pain with range of motion to the right hip. No tenderness over the knee, tibia, or ankle. Does not cooperate with neuromotor exam on the right lower extremity secondary to dementia. X-rays: X-rays of the right hip demonstrate a right intertrochanteric femur fracture which is displaced. Assessment And Plan: Corinne is an 81-year-old female with a right intertrochanteric femur fracture. I discussed with the patient and her power of machine tool dresser, her nephew, at length her diagnosis as well as treatment plan. I discussed options including conservative treatment, given her nonambulatory status, including pain control with hygiene and care and she may be in increased pain with unstable fracture. The family expressed understanding and would like to proceed with stabilization to minimize patient's discomfort. We will proceed with right hip surgical fixation with cephalomedullary device later today. Risks and benefits associated with the procedure were discussed with the family, they expressed understanding. CV/MODL Voice ID: [id number] Report ID: [id number] PORFIRIO
[2021-11-21 12:15] LABS: SARS-COV-2 RT PCR NEGATIVE (NEGATIVE)
--- NOTE | 2021-11-21 14:16 | P.PN ---
Subjective Date of Service: 11/21/21 Chief Complaint: Fall No issues overnight. Patient planned for ORIF today. I was informed patient was on hospice. Hospice is now revoked. Physical Examination - Vital Signs Temperature: 99 F Blood Pressure: 142/75 Pulse: 101 Respirations: 16 Pulse Ox (%): 90 - Physical Exam General: Confused HEENT: Mucous membr. moist/pink Neck: JVD not distended Respiratory: Clear to auscultation bilaterally, Normal air movement Cardiovascular: No edema, Regular rate/rhythm, Normal S1 S2 Gastrointestinal: Normal bowel sounds, Soft and benign, Non-distended, No te nderness Musculoskeletal: No swelling, No erythema Integumentary: No rashes, No cyanosis Neurological: Other (No focal motor deficit.) Assessment And Plan - Current Problems (Diagnosis) (1) Right femoral fracture Current Visit: Yes Status: Acute (2) Chronic kidney disease, stage III (moderate) Current Visit: Yes Status: Acute (3) Dementia Current Visit: No Status: Acute (4) Hypertension Current Visit: No Status: Acute - Plan Orthopedic surgery input appreciated. Patient is scheduled for ORIF today. Pain management as needed Optimize electrolytes. Urine culture shows mixed growth. We will give a dose of IV Rocephin. DVT prophylaxis with renally dosed Lovenox. Patient is bedridden at baseline. PT consult for bed mobility after surgery.
[2021-11-21] MEDS ORDERED: FENTANYL CITR 100 MCG/2 ML ONE (15:55)
[2021-11-21] MEDS ORDERED: LIDOCAINE 2% MPF 5 ML VIAL ONE (15:55)
[2021-11-21] MEDS ORDERED: propofoL 200 MG/20 ML VIAL IV ONE (15:55)
[2021-11-21] MEDS ORDERED: dexAMETHasone 10 MG/ML VIAL ONE (15:55)
[2021-11-21] MEDS ORDERED: ONDANSETRON 4 MG/2 ML VIAL ONE (15:56)
[2021-11-21] MEDS ORDERED: Phenylephrine HCl 10 MG/ML 1 ML VIAL ONE (15:56)
[2021-11-21] MEDS ORDERED: Ringers Lactate 1,000 ML IV ONE (16:23)
[2021-11-21] MEDS ORDERED: CLINDAMYCIN INJ 600 MG in NA CHLORIDE 0.9% 50 ML IV ONE (17:00)
--- NOTE | 2021-11-21 18:39 | RAD REPORT ---
EXAM DESCRIPTION: RAD - Hip In Or - 11/21/2021 6:31 pm CLINICAL HISTORY: Femoral fracture FINDINGS: Fluoroscopy time 1.4 minutes. 29 fluoroscopic spot images obtained Surgery performed by Dr. Holbrook Compression screw and intramedullary alessandro affix a femoral fracture
--- NOTE | 2021-11-21 18:40 | P.BOP ---
Preoperative diagnosis: right intertrochanteric femur fracture Postoperative diagnosis: same Primary procedure: cephallomedullary fixation of right intertrochanteric femur fracture Pathologist Assistant: NONE,NONE Estimated blood loss: 100 cc Specimen: none Findings: see dictation Anesthesia: General Complications: None Drain(s): Urinary catheter Implants: 11s728 mm Biomet Affixus nail, 90 mm lag screw Fluids & blood products: per anesthesia record Transferred to: Recovery Room Condition: Good
[2021-11-21] MEDS ORDERED: DOCUSATE NA 100 MG CAP PO PRN (18:45)
[2021-11-21] MEDS ORDERED: TRAMADOL HCL 50 MG TAB PO PRN (18:45)
[2021-11-21 19:19] LABS: Hematocrit 28.3 % (36.0-45.0)
--- NOTE | 2021-11-21 19:33 | RAD REPORT ---
EXAM DESCRIPTION: RAD - Hip Right 2 View - 11/21/2021 7:10 pm CLINICAL HISTORY: Right hip pain FINDINGS: Compression screw and intramedullary alessandro affix a femoral fracture. Moderate displacement of fracture fragments
[2021-11-21] MEDS: ARIPiprazole 5 MG TAB PO SCH (21:33)
--- NOTE | 2021-11-21 22:05 | P.OP ---
Preoperative diagnosis: right intertrochanteric femur fracture Postoperative diagnosis: same Primary procedure: cephallomedullary fixation of right intertrochanteric femur fracture Anesthesia: general Estimated blood loss: 100 cc Specimen: none Findings: see dictation Operative Technique: Indication For Procedure: Corinne is an 81-year-old female who presented to the ER yesterday after sustaining a fall and had an immediate pain to her right hip and inability to bear weight. She was brought to the emergency room with diagnosis of right intertrochanteric femur fracture. I discussed with the patient's family her diagnosis as well as risks and benefits associated with operative and nonoperative treatment. They expressed understanding and elected to proceed with operative treatment. Description Of Procedure: After informed consent was obtained, the patient was identified in the preoperative holding area and the right lower extremity was marked. The patient was taken back to the operating room, transferred to the operating table in supine fashion, and placed under general anesthesia. Her extremities were well padded. She was then placed on the fracture table. The right lower extremity was then gently manipulated using the fracture table and bone reduction was noted on fluoroscopy. Reduction was difficult as the patient had significant contractures of the hip, knee and ankles bilaterally. There was acceptable alignment noted. Right lower extremity was then prepped and draped in usual sterile fashion. Time-out was initiated. The correct patient and procedure were confirmed and identified. The patient did receive preoperative prophylactic antibiotics. Approximately 5 cm longitudinal incision was made proximal to the greater trochanter. A guide pin was then placed at the tip of the greater trochanter and advanced down the femur in an antegrade fashion. An entry reamer was then placed over the guide pin. Again using fluoroscopy, we ensured proper positioning. A long guidewire was then placed down the femoral canal in antegrade fashion. A sequential reamer was then used to ream the femoral canal to 13 mm and a 130 degree angle was selected. 11 mm x 130 degree needle was then placed over the long ball-tipped guidewire then placed into position. Guidewire was then removed using fluoroscopy. Once in the proper position and reduction was comfirmed and a second incision was made over the lateral thigh and a triple sleeve was then placed at the lateral cortex of the proximal femur. Guide pin was placed into the femoral head in a center-center position and size 90 mm lag screw was selected. Lag screw was then placed and an interlocking screw was then placed distally and an interlocking screw was placed in the static position. The jig was then removed. The wound was then irrigated thoroughly with normal saline. Final x-rays were taken usingfluoroscopy, ensured proper reduction as well as proper placement of the hardware. Deep tissues were approximated using 1 Vicryl. Subcutaneous tissue was approximated using a 2-0 Vicryl. Skin was approximated using shahnaz. Sterile dressings were applied. The patient was awakened and transferred to PACU in stable condition. Postoperative Plan: Weightbearing as tolerated on the right lower extremity. Physical Therapy will be consulted to aid with mobilization. Complications: None Drain(s): Urinary catheter Implants: Biomet 11 x 180 mm Affixus nail, 90 mm lag screw Fluids & blood products: per anesthesia record Transferred to: Recovery Room Condition: Good
[2021-11-22] MEDS: CLINDAMYCIN INJ 600 MG in NA CHLORIDE 0.9% 50 ML IV SCH ×3 (00:57→11:22)
[2021-11-22] MEDS ORDERED: CLINDAMYCIN IV 150 MG/ML (6 mL) VIAL ONE ×2 (01:01→05:23)
[2021-11-22] MEDS ORDERED: NA CHLORIDE 0.9% 50 ML ONE ×2 (01:02→05:22)
[2021-11-22] MEDS: NA CHLORIDE 0.9% 1,000 ML IV SCH ×3 (03:00→21:35)
[2021-11-22 05:59] LABS: Absolute Lymphocytes (CBC) 0.6 K/uL (0.7-4.9); Hematocrit 24.8 % (36.0-45.0); Lymphocytes % 8.4 % (15.3-44.8); MPV 9.5 fL (7.6-11.3); RBC Red Blood Cell Count 2.74 M/uL (3.86-4.86)
[2021-11-22 06:15] LABS: Potassium 4.3 mmol/L (3.5-5.1)
[2021-11-22 07:04] LABS: Blood Morphology Comment NOT SEEN (NOT SEEN); Platelet Estimate ADEQ; White Blood Cell Scan OK (OK)
[2021-11-22] MEDS: carvediloL 6.25 MG TAB PO SCH ×2 (09:00→20:52)
[2021-11-22] MEDS: AMLODIPINE 10 MG TAB PO SCH (09:00)
[2021-11-22] MEDS: METHSCOPOLAMINE BROMIDE PO SCH ×2 (09:00→20:51)
[2021-11-22] MEDS: MULTIVIT W/ MINERAL TAB PO SCH (09:37)
[2021-11-22] MEDS: ENOXAPARIN 30 MG/0.3 ML SQ SCH (09:37)
[2021-11-22] MEDS: buPROPion HCL 100 MG TAB PO SCH (09:37)
[2021-11-22] MEDS: PANTOPRAZOLE 40MG TABLET PO SCH (09:38)
[2021-11-22] MEDS: MIRTAZAPINE 15 MG TAB PO SCH (09:38)
[2021-11-22] MEDS: ESCITALOPRAM 20 MG TAB PO SCH (09:38)
[2021-11-22] MEDS: hydroCHLOROthiazide 12.5 MG CAP PO SCH (09:38)
--- NOTE | 2021-11-22 10:31 | P.PN ---
Subjective Date of Service: 11/22/21 Chief Complaint: Fall Subjective: Improving (POD#1 S/P R ORIF for R IT fx) Physical Examination - Vital Signs Temperature: 98.2 F Blood Pressure: 106/52 Pulse: 84 Respirations: 18 Pulse Ox (%): 95 - Physical Exam General: In no apparent distress, Cooperative, Confused HEENT: Atraumatic, Normocephalic Respiratory: Clear to auscultation bilaterally, Normal air movement Cardiovascular: Regular rate/rhythm, Normal S1 S2 Gastrointestinal: Soft and benign, Non-distended Musculoskeletal: Other (R hip non-tender, non-edematous) Neurological: Dementia Assessment And Plan - Current Problems (Diagnosis) (1) Chronic kidney disease, stage III (moderate) Current Visit: Yes Status: Acute (2) Right femoral fracture Current Visit: Yes Status: Acute (3) Acute metabolic encephalopathy Current Visit: No Status: Acute (4) Dementia Current Visit: No Status: Acute (5) Hypertension Current Visit: No Status: Acute (6) Impaired mobility Current Visit: No Status: Acute Physician Review Additional Text: 11/22/21 10:30 Assessment Patient is a 81 year old female with dementia admitted with a R intertrochanteric fracture. Today is POD#1 S/P ORIF R IT fracture Dementia CKD stage III Bedridden Disphagia PLAN: Post op wound check by Ortho Continue perioperative IV antibiotics Continue PT/OT while in-house Multimodal pain regimen and DVT ppx [employer] for dysphagia Otherwise, patient can be discharge once cleared by PT/Ortho/[employer] 11/22/21 14:19
--- NOTE | 2021-11-22 13:10 | P.PN ---
Subjective Date of Service: 11/22/21 Chief Complaint: s/p IMN right hip Subjective: No new changes, Demented Physical Examination - Vital Signs Temperature: 98.5 F Blood Pressure: 106/55 Pulse: 89 Respirations: 16 Pulse Ox (%): 98 - Physical Exam General: In no apparent distress Musculoskeletal: Other (RLE: dressing c/d/i; no significant swelling to right thigh) Assessment And Plan - Plan Corinne is an 81 yo female s/p IMN right hip POD#1 -acute postop blood loss anemia on chronic anemia; continue to monitor H/H -lovenox for DVT prophylaxis -await possible placement of SNF
[2021-11-22] MEDS: ARIPiprazole 5 MG TAB PO SCH (20:53)
[2021-11-22 21:12] VITALS: O2SAT 96
[2021-11-23 04:12] LABS: Absolute Lymphocytes (CBC) 1.7 K/uL (0.7-4.9); Hematocrit 22.4 % (36.0-45.0); Lymphocytes % 20.2 % (15.3-44.8); MPV 9.4 fL (7.6-11.3); RBC Red Blood Cell Count 2.49 M/uL (3.86-4.86)
[2021-11-23 04:31] LABS: Potassium 3.8 mmol/L (3.5-5.1)
[2021-11-23] MEDS: NA CHLORIDE 0.9% 1,000 ML IV SCH ×2 (04:33→09:25)
[2021-11-23] MEDS ORDERED: KCL 20 MEQ/100 mL IVPB 20 MEQ/100 ML BAG IV SCH (09:00)
[2021-11-23] MEDS: METHSCOPOLAMINE BROMIDE PO SCH (09:00)
[2021-11-23] MEDS: PANTOPRAZOLE 40MG TABLET PO SCH (09:25)
[2021-11-23] MEDS: ESCITALOPRAM 20 MG TAB PO SCH (09:25)
[2021-11-23] MEDS: hydroCHLOROthiazide 12.5 MG CAP PO SCH (09:25)
[2021-11-23] MEDS: MULTIVIT W/ MINERAL TAB PO SCH (09:25)
[2021-11-23] MEDS: carvediloL 6.25 MG TAB PO SCH (09:26)
[2021-11-23] MEDS: AMLODIPINE 10 MG TAB PO SCH (09:26)
[2021-11-23] MEDS: buPROPion HCL 100 MG TAB PO SCH (09:26)
[2021-11-23] MEDS: MIRTAZAPINE 15 MG TAB PO SCH (09:27)
[2021-11-23] MEDS: ENOXAPARIN 30 MG/0.3 ML SQ SCH (09:31)
--- NOTE | 2021-11-23 11:49 | P.PN ---
Subjective Date of Service: 11/23/21 Chief Complaint: s/p IMN right hip Subjective: No new changes Physical Examination - Vital Signs Temperature: 97.9 F Blood Pressure: 133/62 Pulse: 97 Respirations: 16 Pulse Ox (%): 97 - Physical Exam General: In no apparent distress Musculoskeletal: Other (RLE: dressing c/d/i; no significant swelling to thigh) Assessment And Plan - Plan Corinne is an 81 yo female s/p IMN right hip POD#2 -acute postop blood loss anemia on chronic anemia; continue to monitor H/H -lovenox for DVT prophylaxis -await possible placement of SNF
[2021-11-23 14:25] LABS: Absolute Lymphocytes (CBC) 1.4 K/uL (0.7-4.9); Hematocrit 22.7 % (36.0-45.0); Lymphocytes % 17.3 % (15.3-44.8); MPV 9.9 fL (7.6-11.3)
--- NOTE | 2021-11-23 14:55 | P.DS ---
Admission Date: 11/20/21 Discharge Date: 11/23/21 Disposition: ROUTINE DISCHARGE Discharge Condition: GOOD Reason for Admission: s/p IMN right hip - Problems (1) Chronic kidney disease, stage III (moderate) Current Visit: Yes Status: Acute (2) Right femoral fracture Current Visit: Yes Status: Acute (3) Acute metabolic encephalopathy Current Visit: No Status: Acute (4) Dementia Current Visit: No Status: Acute (5) Hypertension Current Visit: No Status: Acute (6) Impaired mobility Current Visit: No Status: Acute Hospital Course: Patient is a 81 year old female with dementia who was admitted with a R intertrochanteric fracture. She underwent ORIF of her R hip and tolerated the procedure well. PT was consulted but her participation was limited due to her bedridden status. Her Hb downtrended significantly throughout her hospitalization. Hb was 7.4 on the day of discharge. Although there was no signs of bleeding, DVT ppx post op may increasing her risk of bleeding. Vital Signs/Physical Exam: Temp Pulse Resp BP Pulse Ox 98.3 F 85 16 126/58 L 96 11/23/21 12:00 11/23/21 12:00 11/23/21 12:00 11/23/21 12:00 11/23/21 12:00 General: Alert, Cooperative HEENT: Atraumatic, Normocephalic Respiratory: Normal air movement Musculoskeletal: Other (R hip tendern to palpation, not edematous) Neurological: Normal speech, Normal affect Laboratory Data at Discharge: WBC 8.10 K/uL (4.3-10.9) 11/23/21 11:55 Hgb 7.4 g/dL (12.0-15.0) L 11/23/21 11:55 Hct 22.7 % (36.0-45.0) L 11/23/21 11:55 Plt Count 205 K/uL (152-406) 11/23/21 11:55 PT 11.7 SECONDS (9.5-12.5) 11/20/21 13:40 INR 1.06 11/20/21 13:40 APTT 33.3 SECONDS (24.3-36.9) 11/20/21 19:18 Sodium 146 mmol/L (136-145) H 11/23/21 03:52 Potassium 3.8 mmol/L (3.5-5.1) 11/23/21 03:52 BUN 23 mg/dL (7-18) H 11/23/21 03:52 Creatinine 1.28 mg/dL (0.55-1.3) 11/23/21 03:52 Glucose 97 mg/dL (74-106) 11/23/21 03:52 Phosphorus 3.2 mg/dL (2.5-4.9) 11/21/21 03:31 Magnesium 1.8 mg/dL (1.8-2.4) 11/21/21 03:31 Total Bilirubin 0.5 mg/dL (0.2-1.0) 11/21/21 03:31 AST 38 U/L (15-37) H 11/21/21 03:31 ALT 25 U/L (12-78) 11/21/21 03:31 Alkaline Phosphatase 64 U/L (45-117) 11/21/21 03:31 Home Medications: ARIPiprazole [Aripiprazole] 10 mg PO BEDTIME 07/09/21 Acetaminophen [Acetaminophen Extra Strength] 1 tab PO Q6H PRN 07/09/21 Amlodipine Besylate 10 mg PO DAILY 07/09/21 Escitalopram [Lexapro*] 20 mg PO DAILY 07/09/21 Mirtazapine 7.5 mg PO DAILY 07/09/21 Multivit,Calc,Mins/Iron/Folic [Thera-M Tablet] 1 tab PO DAILY 07/09/21 Omeprazole 20 mg PO DAILY 07/09/21 carvediloL [Carvedilol] 6.25 mg PO BID 07/09/21 hydroCHLOROthiazide [Hydrochlorothiazide*] 25 mg PO DAILY 07/09/21 buPROPion HCL [Bupropion HCl] 100 mg PO DAILY 07/10/21 Methscopolamine [place] 2.5 mg PO BID 11/20/21 Followup: Luke Jensen MD [Primary Care Provider] -
[2021-11-23 16:32] VITALS: BP 115/58; TEMP 99
== END 2021-11-23 16:36 | disposition hospice, inpatient (51) | DRG 480 ==
LOC: ER 10:05 → ERHOLD 14:39 → 2ND 17:33
PROVIDERS: ADMIT Internal Medicine; ATTEND Internal Medicine
PROC: 0QS634Z Reposition Right Upper Femur with Internal Fixation Device, Percutaneous Approach (ICD-10-PCS; principal; 2021-11-21 17:00)
DX: S72.141A Displaced intertrochanteric fracture of right femur, initial encounter for closed fracture (principal); G93.41 Metabolic encephalopathy; N39.0 Urinary tract infection, site not specified; D62 Acute posthemorrhagic anemia; F03.90 Unspecified dementia, unspecified severity, without behavioral disturbance, psychotic disturbance, mood disturbance, and anxiety; I12.9 Hypertensive chronic kidney disease with stage 1 through stage 4 chronic kidney disease, or unspecified chronic kidney disease; N18.30 Chronic kidney disease, stage 3 unspecified; W06.XXXA Fall from bed, initial encounter; Y92.199 Unspecified place in other specified residential institution as the place of occurrence of the external cause; Z74.01 Bed confinement status; Z20.822 Contact with and (suspected) exposure to COVID-19
CPT/HCPCS: 0240U; 36415; 51702; 71045; 72170; 72192; 80048; 80053; 80076; 81001; 83735; 84100; 84132; 84443; 84484; 85014; 85018; 85025; 85610; 85730; 87077; 87086; 87088; 87186; 92526; 92610; 93005; 94010; 96361; 96365; 96366; 96375; 97110; 97112; 97162; 99285; J1100; J1650; J2370; J2405; J2704; J3010; J3480; J7030; J7040; J7120; U0002